=== PATIENT | female | born 1965 | race Hispanic/Latino ===

== ENCOUNTER 2019-08-06 18:44 | Inpatient (IN) | payer MEDICAID, OTHER ==
[~2019-08-06] VITALS: Ht 154.9 cm; Wt 134.6 kg
[2019-08-06 19:56] LABS: BASOPHILS % (AUTO) 0.5 % (0.0-5.0); EOSINOPHILS % (AUTO) 5.6 % (0.0-8.0); HEMATOCRIT 24.7 % (36-48); LYMPHOCYTES % (AUTO) 34.9 % (21.0-51.0); MEAN CORPUSCULAR HEMOGLOBIN 28.1 pg (27.0-33.0); MEAN CORPUSCULAR HGB CONC 30.4 g/dL (32.0-36.0); MEAN CORPUSCULAR VOLUME 92.5 fL (79-99); MONOCYTES % (AUTO) 5.2 % (3.0-13.0); NEUTROPHILS % (AUTO) 53.5 % (40.0-77.0); PLATELET COUNT (AUTO) 195 K/uL (130-400); RED BLOOD CELL COUNT(AUTO) 2.67 MIL/uL (4.00-5.50); RED CELL DISTRIBUTION WIDTH 15.5 % (11.0-15.5); WHITE BLOOD COUNT (AUTO) 7.7 K/uL (4.8-10.8)
[2019-08-06] MEDS ORDERED: FAMOTIDINE 20MG TAB 20 MG TAB ONE (19:56)
[2019-08-06] MEDS ORDERED: ONDANSETRON ODT 4 MG TAB ONE (19:57)
[2019-08-06 20:13] LABS: ALBUMIN 2.9 g/dL (3.5-5.0); BILIRUBIN,TOTAL 0.4 mg/dL (0.2-1.0); POTASSIUM 5.7 mmol/L (3.5-5.1); TOTAL PROTEIN, SERUM 7.6 g/dL (6.0-8.3)
[2019-08-06] MEDS ORDERED: SODIUM CHLORIDE 0.9% 1000ML 1,000 ML IV ONE ×2 (20:25→21:55)
[2019-08-06 20:28] LABS: APPEARANCE,URINE CLOUDY (CLEAR); BILIRUBIN,URINE NEGATIVE (NEGATIVE); COLOR,URINE YELLOW (YELLOW); GLUCOSE, URINE (UA) 100 mg/dL (NEGATIVE); KETONES,URINE NEGATIVE (NEGATIVE); LEUKOCYTE ESTERASE ,URINE SMALL (NEGATIVE); NITRATE,URINE NEGATIVE (NEGATIVE); OCCULT BLOOD,URINE TRACE-INTACT (NEGATIVE); PROTEIN,URINE >=300 mg/dL (NEGATIVE); UROBILINOGEN,URINE 0.2 mg/dL (0.2-1.0)
[2019-08-06] MEDS ORDERED: ALBUTEROL SULFATE 0.083% 2.5 MG/3 ML INH IH ONE (20:53)
[2019-08-06 21:14] LABS: BACTERIA,URINE Moderate /HPF (None Seen); SQUAMOUS EPITHELIAL CELL,UR Rare /HPF (0-2); WBC,URINE 51-100 /HPF (0-1)
[2019-08-06] MEDS ORDERED: INSULIN HUMULIN R 100 UNIT/ML 3ML IV SCH (21:30)
[2019-08-06] MEDS ORDERED: DEXTROSE 50%-WATER 25 GM/50 ML VIAL IV SCH (21:30)
[2019-08-06] MEDS ORDERED: SODIUM BICARB 8.4% 50ML SYRINGE IVP SCH (21:30)
[2019-08-06 21:31] LABS: AMYLASE 76 U/L (25-115); LIPASE 460 U/L (114-286)
[2019-08-06] MEDS ORDERED: FUROSEMIDE 10 MG/ML 4ML VIAL ONE (21:34)
[2019-08-06] MEDS ORDERED: FUROSEMIDE 10 MG/ML 2ML VIAL ONE (21:34)
[2019-08-06] MEDS ORDERED: SODIUM POLYSTYRENE SULFONATE 15 GM/60 ML ML ONE (21:34)
[2019-08-06] MEDS ORDERED: SODIUM BICARB 50MEQ 50ML VIAL ONE (21:51)
[2019-08-06] MEDS ORDERED: DEXTROSE 50%-WATER 50 ML DISP.SYRIN IV ONE (21:52)
[2019-08-06] MEDS ORDERED: INSULIN HUMULIN R 100 UNIT/ML 3ML ONE (21:52)
[2019-08-06 22:41] LABS: PHOSPHORUS 9.1 mg/dL (2.5-4.9); THYROID STIMULATING HORMONE 5.87 uIU/mL (0.36-3.74)
[2019-08-06 22:46] LABS: HEMOGLOBIN A1C 6.2 % (4.0-6.0)
[2019-08-06 23:15] LABS: POTASSIUM 5.4 mmol/L (3.5-5.1)
[2019-08-06] MEDS ORDERED: ACETAMINOPHEN 325 MG TAB PO PRN ×2 (23:15)
[2019-08-06] MEDS ORDERED: NITROGLYCERIN 0.4 MG SL TAB SL PRN (23:15)
[2019-08-06] MEDS ORDERED: DiphenhydrAMINE HCL 50 MG/ML VIAL IV PRN (23:15)
[2019-08-06] MEDS ORDERED: CEFTRIAXONE SODIUM 1 GM IV SCH (23:15)
[2019-08-06] MEDS ORDERED: ONDANSETRON HCL 4 MG/2 ML VIAL IV PRN (23:15)
--- NOTE | 2019-08-06 23:17 | NUR ---
ADMISSION. PT ADMITTED INTO ROOM 405, AWAKE, ALERT AND VERBALLY RESPONSIVE. NO C/O PAIN OR DISCOMFORT AT THIS TIME. PT AND FAMILY OREINTED TO ROOM, CALL MG WITHIN REACH, BED IN LOWEST POSITION. Addendum: 08/07/19 at 0008 by REJI DIAZ RN Amended: Links added.
[2019-08-06 23:30] VITALS: BP 156/98
[2019-08-06 23:36] LABS: % IRON SATURATION 26.8 % (22-44)
[2019-08-06] MEDS ORDERED: CALCIUM CHLORIDE 100 MG/ML 10 ML SYG IVP SCH (23:45)
[2019-08-07 00:12] VITALS: BP 155/78
[2019-08-07] MEDS ORDERED: DORZ10DR19 OS (00:15)
[2019-08-07] MEDS ORDERED: LOSA100T58 PO (00:15)
[2019-08-07] MEDS ORDERED: LEVO25TA54 PO (00:15)
[2019-08-07] MEDS ORDERED: RANI150T7 PO (00:15)
[2019-08-07] MEDS ORDERED: PRED5DRO25 OP (00:15)
[2019-08-07] MEDS ORDERED: ATOR10 PO (00:15)
[2019-08-07] MEDS ORDERED: BRIM5DRO OS (00:15)
[2019-08-07] MEDS ORDERED: CALCIUM GLUCONATE 1 GM/10 ML VIAL IV ONE (00:48)
[2019-08-07] MEDS: SODIUM CHLORIDE 0.9% 1000ML 1,000 ML IV SCH ×2 (01:04→04:17)
[2019-08-07 04:12] VITALS: BP 146/80
[2019-08-07] MEDS ORDERED: CEFTRIAXONE SODIUM 1 GM ONE (05:28)
[2019-08-07 06:22] LABS: HEMATOCRIT 21.4 % (36-48); MEAN CORPUSCULAR HEMOGLOBIN 27.4 pg (27.0-33.0); MEAN CORPUSCULAR HGB CONC 29.9 g/dL (32.0-36.0); MEAN CORPUSCULAR VOLUME 91.5 fL (79-99); PLATELET COUNT (AUTO) 164 K/uL (130-400); RED BLOOD CELL COUNT(AUTO) 2.34 MIL/uL (4.00-5.50); RED CELL DISTRIBUTION WIDTH 15.2 % (11.0-15.5); WHITE BLOOD COUNT (AUTO) 5.7 K/uL (4.8-10.8)
[2019-08-07 06:34] LABS: INR 1.01 (0.85-1.15); PARTIAL THROMBOPLASTIN TIME 29.3 SEC (26.3-35.5); PROTHROMBIN TIME 10.6 SEC (9.6-11.6)
[2019-08-07 07:07] LABS: ALBUMIN 2.7 g/dL (3.5-5.0); BILIRUBIN,TOTAL 0.3 mg/dL (0.2-1.0); MAGNESIUM 2.3 mg/dL (1.80-2.40); PHOSPHORUS 9.5 mg/dL (2.5-4.9); POTASSIUM 5.4 mmol/L (3.5-5.1); TOTAL PROTEIN, SERUM 6.7 g/dL (6.0-8.3)
[2019-08-07 07:34] LABS: CREATININE 14.7 mg/dL (0.5-1.5)
--- NOTE | 2019-08-07 07:45 | NUR ---
lab results on repeat H&H 6.3/21.0; bun 123 and creatine 14.7; all these results reported to financial engineer Robert; she stated to insert avelar cathetor to make sure pt not retaining urine and call dr freedman to inform of current labs and ask if he recommends giving prbc; I inserted a 16fr avelar cathetor---hands washed, kayode area cleansed with soap and water then betadine, aseptic technique used to insert cathetor, immediate return of 300cc clear light yellow urine; pt pa. proc. well with no c/o at this time; urine output reported to Robert; will page dr Freedman.
[2019-08-07 08:00] VITALS: BP 161/88
--- NOTE | 2019-08-07 08:20 | NUR ---
i have spoken to dr freedman on the phone and informed of new consult and current labs; he stated he would give no orders till he had a chance to see the patient; i have informed supervisor bonding Robert of this and she stated to keep an eye on pt's urine output and make sure it is increasing to conside with iv fluid intake and report to her
[2019-08-07] MEDS: PREDNISOLONE ACETATE 1% 5ML DROPS.SUSP OP SCH ×2 (09:00→21:00)
[2019-08-07] MEDS: ***HM***(Brimonidine Tartrate/Timolol (Combigan Eye Drops) 5 ML) OS SCH ×2 (09:00→21:00)
[2019-08-07] MEDS: DORZOLAMIDE HCL OS SCH ×2 (09:00→21:00)
[2019-08-07] MEDS: FAMOTIDINE/PF 20 MG/2 ML VIAL IV SCH (09:03)
[2019-08-07] MEDS: ENOXAPARIN SODIUM 30 MG/0.3 ML SQ SCH (09:04)
[2019-08-07 09:49] LABS: BAND NEUTROPHILS % (MANUAL) 1 % (0-2); EOSINOPHILS % (MANUAL) 4 % (1-6); LYMPHOCYTES % (MANUAL) 37 % (22-44); MAN.DIFF COMMENT-IMPRESSION MANUAL DIFFERENTIAL; MONOCYTES % (MANUAL) 3 % (2-9); PLATELET MORPHOLOGY COMMENT ADEQUATE; SEGMENTED NEUTROPHILS % 55 % (40-70)
[2019-08-07] MEDS ORDERED: SODIUM POLYSTYRENE SULFONATE 15 GM/60 ML ML PO SCH (10:00)
[2019-08-07 11:00] VITALS: BP 138/78
--- NOTE | 2019-08-07 13:55 | NUR ---
i have called and left a message on dr freedman's phone to inform him that pt has agreed to dialysis and see if he wants to give any further orders; pending call back
[2019-08-07] MEDS ORDERED: COMPOUND IV MISC 1 EACH IVSOLN MISC PRN (14:15)
--- NOTE | 2019-08-07 14:53 | NUR ---
no call back yet from dr freedman and pt is asking to eat; current order is to keep pt npo incase dr freedman says to do any procedures today towards starting dialysis; i have paged him
[2019-08-07] MEDS: IRON SUCROSE COMPLEX 100 MG in SODIUM CHLORIDE 0.9% 50 ML IV SCH (15:15)
[2019-08-07 16:00] VITALS: BP 154/94
--- NOTE | 2019-08-07 17:11 | NUR ---
cm note met with patient and states resides at home with daughter bethel, indep with ambulation, but needs to hold on to furniture or person to ambulate due to weakness. no dme. no provider, currently working on getting provider. dc plan is back to home. states md will starting new HD, states they prefer to go to [address] choice for HD, if in network. daughter will transport. dc plan is back home at time of dc. Addendum: 08/07/19 at 1714 by BECKY SAM CM Amended: Links added.
[2019-08-07 20:12] VITALS: BP 148/66
[2019-08-07] MEDS: CEFTRIAXONE SODIUM 1 GM IV SCH (21:46)
[2019-08-08] VITALS (11 sets, daily range): BP systolic 142–197; BP diastolic 76–92
[2019-08-08 05:34] LABS: BASOPHILS % (AUTO) 0.5 % (0.0-5.0); EOSINOPHILS % (AUTO) 4.4 % (0.0-8.0); LYMPHOCYTES % (AUTO) 30.9 % (21.0-51.0); MEAN CORPUSCULAR HEMOGLOBIN 27.6 pg (27.0-33.0); MEAN CORPUSCULAR VOLUME 92.1 fL (79-99); MONOCYTES % (AUTO) 5.8 % (3.0-13.0); NEUTROPHILS % (AUTO) 58.2 % (40.0-77.0); PLATELET COUNT (AUTO) 154 K/uL (130-400); RED BLOOD CELL COUNT(AUTO) 2.28 MIL/uL (4.00-5.50); RED CELL DISTRIBUTION WIDTH 15.4 % (11.0-15.5); WHITE BLOOD COUNT (AUTO) 5.7 K/uL (4.8-10.8)
[2019-08-08 05:45] LABS: INR 1.02 (0.85-1.15); PARTIAL THROMBOPLASTIN TIME 30.5 SEC (26.3-35.5); PROTHROMBIN TIME 10.7 SEC (9.6-11.6)
[2019-08-08 06:07] LABS: ALBUMIN 2.5 g/dL (3.5-5.0); BILIRUBIN,TOTAL 0.3 mg/dL (0.2-1.0); MAGNESIUM 2.7 mg/dL (1.80-2.40); PHOSPHORUS 9.3 mg/dL (2.5-4.9); POTASSIUM 4.6 mmol/L (3.5-5.1); TOTAL PROTEIN, SERUM 6.5 g/dL (6.0-8.3); URIC ACID 8.6 mg/dL (2.6-7.2)
[2019-08-08 06:32] LABS: CREATININE 14.1 mg/dL (0.5-1.5)
[2019-08-08] MEDS: FAMOTIDINE/PF 20 MG/2 ML VIAL IV SCH (07:46)
[2019-08-08] MEDS: PREDNISOLONE ACETATE 1% 5ML DROPS.SUSP OP SCH ×2 (07:47→19:57)
[2019-08-08] MEDS: IRON SUCROSE COMPLEX 100 MG in SODIUM CHLORIDE 0.9% 50 ML IV SCH (07:47)
[2019-08-08] MEDS: DORZOLAMIDE HCL OS SCH ×2 (09:00→19:58)
[2019-08-08] MEDS: ***HM***(Brimonidine Tartrate/Timolol (Combigan Eye Drops) 5 ML) OS SCH ×2 (09:00→19:57)
[2019-08-08] MEDS: ENOXAPARIN SODIUM 30 MG/0.3 ML SQ SCH (09:00)
[2019-08-08] MEDS: FOLIC ACID/VITAMIN B COMP W-C 1 CAP TAB PO SCH (09:00)
[2019-08-08] MEDS ORDERED: IODIXANOL 320 MG/ML 100 ML VIAL ONE (09:06)
[2019-08-08] MEDS ORDERED: LIDOCAINE HCL 1% MDV 50ML VIAL ONE (09:06)
--- NOTE | 2019-08-08 09:17 | NUR ---
TO CODE CLERK PATIENT TRANSFERRED TO CODE CLERK FOR PERMACATH PLACEMENT. SHE IS IN STABLE CONDITION. FAMILY WILL WAIT IN ROOM.
--- NOTE | 2019-08-08 10:22 | NUR ---
BACK FROM [facility] PATIENT RETURNED FROM [facility] WITH A RIGHT IJ PERMACATH. DRESSING IS DRY AND INTACT. WILL BE PLACED ON POST PROCEDURE VITAL SIGNS. WILL CONTINUE TO MONITOR.
[2019-08-08 12:58] LABS: % IRON SATURATION 83.6 % (22-44)
[2019-08-08] MEDS ORDERED: SODIUM CHLORIDE 0.9% 250 ML IV ONE (14:03)
[2019-08-08] MEDS ORDERED: 0.9% SODIUM CHLORIDE 1000 ML IV BAG IV PRN (14:30)
[2019-08-08] MEDS ORDERED: SODIUM CHLORIDE 0.9% 1000ML 1,000 ML IV PRN (14:30)
[2019-08-08] MEDS ORDERED: NITROGLYCERIN 0.4 MG SL TAB SL PRN (14:30)
[2019-08-08] MEDS ORDERED: ACETAMINOPHEN 325 MG TAB PO PRN (14:30)
[2019-08-08] MEDS ORDERED: HEPARIN SODIUM 5000UNIT/ML 1ML VIAL IJ PRN ×2 (14:30)
[2019-08-08] MEDS ORDERED: LIDOCAINE HCL-MPF 1% 2ML VIAL IJ PRN (14:30)
--- NOTE | 2019-08-08 15:01 | NUR ---
DIALYSIS PATIENT WAS DIALYZED FOR 2 HOURS TODAY REMOVING 2.2 LITERS. V/S ARE STABLE. DR. ANGUIANO CAME TO SEE PATIENT AND NEW ORDERS WERE RECEIVED AND CARRIED OUT.
[2019-08-08] MEDS ORDERED: EPOETIN ALFA 10,000 UNIT/ML VIAL SQ SCH (16:30)
[2019-08-08] MEDS ORDERED: LACTULOSE 20 GM/30 ML UDCUP ONE (19:46)
[2019-08-08] MEDS: CEFTRIAXONE SODIUM 1 GM IV SCH (19:57)
[2019-08-08] MEDS: METOPROLOL TARTRATE 25 MG TAB PO SCH (19:57)
[2019-08-08] MEDS: ATORVASTATIN CALCIUM 10 MG TABLET PO SCH (19:57)
--- NOTE | 2019-08-08 20:00 | NUR ---
NO BOWEL MOVEMENT PATIENT COMPLAINS OF NO BOWEL MOVEMENT SINCE 08-06-19 AND IS STARTING TO BECOME UNCOMFORTABLE. [employer] DRIVER NOTIFIED OF PATIENT COMPLAINT AND ORDER FOR LACTULOSE PO GIVEN AND CARRIED OUT. I DID ASK FOR ELEVATED BLOOD PRESSURE COVERAGE WELL AND WAS GIVEN AND ODER FOR HYDRALAZINE 10 MG IVP FOR SBP >160 PRN Q6 HR.
[2019-08-08] MEDS ORDERED: HYDRALAZINE HCL 20 MG/ML VIAL IV PRN (20:30)
[2019-08-08] MEDS ORDERED: LACTULOSE 20 GM/30 ML UDCUP PO PRN (20:30)
[2019-08-09] VITALS (20 sets, daily range): BP systolic 124–164; BP diastolic 72–96
[2019-08-09] MEDS: LEVOTHYROXINE 25 MCG TABLET PO SCH (04:06)
[2019-08-09 06:40] LABS: BASOPHILS % (AUTO) 0.2 % (0.0-5.0); EOSINOPHILS % (AUTO) 4.1 % (0.0-8.0); HEMATOCRIT 26.9 % (36-48); LYMPHOCYTES % (AUTO) 33.4 % (21.0-51.0); MEAN CORPUSCULAR HEMOGLOBIN 27.8 pg (27.0-33.0); MEAN CORPUSCULAR HGB CONC 31.2 g/dL (32.0-36.0); MEAN CORPUSCULAR VOLUME 89.1 fL (79-99); MONOCYTES % (AUTO) 7.3 % (3.0-13.0); NEUTROPHILS % (AUTO) 54.8 % (40.0-77.0); PLATELET COUNT (AUTO) 161 K/uL (130-400); RED BLOOD CELL COUNT(AUTO) 3.02 MIL/uL (4.00-5.50); RED CELL DISTRIBUTION WIDTH 15.5 % (11.0-15.5); WHITE BLOOD COUNT (AUTO) 6.1 K/uL (4.8-10.8)
[2019-08-09 06:58] LABS: INR 0.97 (0.85-1.15); PARTIAL THROMBOPLASTIN TIME 28.6 SEC (26.3-35.5); PROTHROMBIN TIME 10.2 SEC (9.6-11.6)
[2019-08-09 06:59] LABS: ALBUMIN 2.8 g/dL (3.5-5.0); BILIRUBIN,TOTAL 0.4 mg/dL (0.2-1.0); POTASSIUM 3.9 mmol/L (3.5-5.1); TOTAL PROTEIN, SERUM 7.3 g/dL (6.0-8.3)
[2019-08-09 07:03] LABS: CREATININE 11.4 mg/dL (0.5-1.5)
[2019-08-09] MEDS: FAMOTIDINE/PF 20 MG/2 ML VIAL IV SCH (08:04)
[2019-08-09] MEDS: METOPROLOL TARTRATE 25 MG TAB PO SCH ×2 (08:05→21:15)
[2019-08-09] MEDS: FOLIC ACID/VITAMIN B COMP W-C 1 CAP TAB PO SCH (08:07)
[2019-08-09] MEDS: ***HM***(Brimonidine Tartrate/Timolol (Combigan Eye Drops) 5 ML) OS SCH ×2 (08:07→21:00)
[2019-08-09] MEDS: PREDNISOLONE ACETATE 1% 5ML DROPS.SUSP OP SCH ×2 (08:07→21:15)
[2019-08-09] MEDS: DORZOLAMIDE HCL OS SCH ×2 (08:07→21:00)
[2019-08-09] MEDS: IRON SUCROSE COMPLEX 100 MG in SODIUM CHLORIDE 0.9% 50 ML IV SCH (08:10)
--- NOTE | 2019-08-09 10:00 | NUR ---
DISCUSSED AFTER CARE BRIEFLY WITH FAMILY THEY WANT PT TO GO TO [place], NEED MORE DIRECTION FROM . FAMILY ALSO WANTING PATIENT TO EAT NOW- ADVISED THEM TO NOT EAT PLEASE1 Addendum: 08/09/19 at 1440 by CAROLINE GOLD RN CM Amended: Links added.
--- NOTE | 2019-08-09 12:43 | NUR ---
MATHEWS MATHEWS CATHETER REMOVED PER MD ORDER. PATIENT TOLERATED WELL.
--- NOTE | 2019-08-09 14:28 | NUR ---
TO OR PATIENT HAS BEEN TRANSFERRED TO OR HOLDING VIA HOSPITAL BED IN STABLE CONDITION. SHE IS ACCOMPANIED BY DAUGHTER.
[2019-08-09] MEDS ORDERED: CEFAZOLIN SODIUM 1 GM VIAL ONE (14:44)
[2019-08-09] MEDS ORDERED: LIDOCAINE PF 2% 5ML ABBOJECT ONE (15:08)
[2019-08-09] MEDS ORDERED: PROPOFOL 10 MG/ML 20ML VIAL IV ONE (15:08)
[2019-08-09] MEDS ORDERED: ROCURONIUM 10MG/1ML SYR 10 MG/ML ML ONE (15:10)
[2019-08-09] MEDS ORDERED: ONDANSETRON HCL 4 MG/2 ML VIAL ONE (15:15)
[2019-08-09] MEDS ORDERED: MIDAZOLAM HCL 1 MG/ML 2ML VIAL ONE (15:15)
--- NOTE | 2019-08-09 16:18 | NUR ---
PKT FOR HD REFERRAL PREPARED. PT OFF FLOOR, UNABLE TO GIVE RANDALL/CONSENT. WILL FOLLOW UP IN AM
[2019-08-09] MEDS ORDERED: TRAMADOL HCL 50 MG TABLET PO PRN ×2 (16:30)
[2019-08-09] MEDS ORDERED: GLYCOPYRROLATE 1 MG/5 ML SYRINGE ONE (16:49)
[2019-08-09] MEDS ORDERED: NEOSTIGMINE 5MG/5ML SYR IV ONE (16:50)
[2019-08-09] MEDS ORDERED: METOPROLOL TARTRATE 1 MG/ML 5ML VIAL IV ONE ×2 (17:04→17:06)
--- NOTE | 2019-08-09 18:20 | NUR ---
POST SURGERY PATIENT RETURNED FROM PACU S/P LEFT UPPER ARM A-V ACCESS. SHE IS AWAKE AND ALERT AND IN STABLE CONDITION. DIALYSIS NURSE IS IN THE ROOM READY TO DIALYZE PATIENT. FAMILY IS ALSO IN ROOM. NO COMPLAINTS. DRESSING TO LEFT UPPER ARM DRY AND INTACT.
[2019-08-09] MEDS: ATORVASTATIN CALCIUM 10 MG TABLET PO SCH (21:14)
[2019-08-09] MEDS: CEFTRIAXONE SODIUM 1 GM IV SCH (21:14)
[2019-08-10] VITALS: BP 126/94
[2019-08-10 03:55] VITALS: BP 149/78
[2019-08-10 06:14] LABS: HEMATOCRIT 23.1 % (36-48); MEAN CORPUSCULAR HEMOGLOBIN 27.9 pg (27.0-33.0); MEAN CORPUSCULAR HGB CONC 31.6 g/dL (32.0-36.0); MEAN CORPUSCULAR VOLUME 88.2 fL (79-99); PLATELET COUNT (AUTO) 133 K/uL (130-400); RED BLOOD CELL COUNT(AUTO) 2.62 MIL/uL (4.00-5.50); RED CELL DISTRIBUTION WIDTH 15.1 % (11.0-15.5); WHITE BLOOD COUNT (AUTO) 6.6 K/uL (4.8-10.8)
--- NOTE | 2019-08-10 06:19 | NUR ---
DAILY WEIGHT PATIENT DOES NOT WANT TO BE WEIGHT THIS MORNING AT THIS TIME STATES SHE WILL GET UP LATER THIS MORNING AND TAKE HER WEIGHT.
[2019-08-10 06:37] LABS: ALBUMIN 2.5 g/dL (3.5-5.0); BILIRUBIN,TOTAL 0.3 mg/dL (0.2-1.0); POTASSIUM 3.6 mmol/L (3.5-5.1); TOTAL PROTEIN, SERUM 6.5 g/dL (6.0-8.3)
[2019-08-10 06:40] LABS: CREATININE 8.3 mg/dL (0.5-1.5)
[2019-08-10] MEDS: LEVOTHYROXINE 25 MCG TABLET PO SCH (06:52)
[2019-08-10 08:11] LABS: HEPATITIS Bs ANTIGEN SCREEN P Negative (Negative)
[2019-08-10 08:30] LABS: EOSINOPHILS % (MANUAL) 3 % (1-6); LYMPHOCYTES % (MANUAL) 29 % (22-44); MAN.DIFF COMMENT-IMPRESSION MANUAL DIFFERENTIAL; MONOCYTES % (MANUAL) 6 % (2-9); PLATELET MORPHOLOGY COMMENT ADEQUATE; SEGMENTED NEUTROPHILS % 62 % (40-70)
[2019-08-10] MEDS: DORZOLAMIDE HCL OS SCH ×2 (08:34→21:00)
[2019-08-10] MEDS: ***HM***(Brimonidine Tartrate/Timolol (Combigan Eye Drops) 5 ML) OS SCH ×2 (08:34→21:00)
[2019-08-10 08:37] VITALS: BP 150/75
[2019-08-10] MEDS: FOLIC ACID/VITAMIN B COMP W-C 1 CAP TAB PO SCH (09:12)
[2019-08-10] MEDS: FAMOTIDINE/PF 20 MG/2 ML VIAL IV SCH (09:13)
[2019-08-10] MEDS: IRON SUCROSE COMPLEX 100 MG in SODIUM CHLORIDE 0.9% 50 ML IV SCH (09:13)
[2019-08-10] MEDS: METOPROLOL TARTRATE 25 MG TAB PO SCH ×2 (09:13→19:53)
[2019-08-10] MEDS: PREDNISOLONE ACETATE 1% 5ML DROPS.SUSP OP SCH ×2 (09:14→19:53)
[2019-08-10 12:06] VITALS: BP 141/67
[2019-08-10 16:39] VITALS: BP 139/74
[2019-08-10] MEDS: ATORVASTATIN CALCIUM 10 MG TABLET PO SCH (19:53)
[2019-08-10] MEDS: CEFTRIAXONE SODIUM 1 GM IV SCH (19:53)
[2019-08-10 19:58] VITALS: BP 161/62
[2019-08-11] VITALS (7 sets, daily range): BP systolic 128–190; BP diastolic 58–89
[2019-08-11 05:18] LABS: PHOSPHORUS 7.8 mg/dL (2.5-4.9); POTASSIUM 3.7 mmol/L (3.5-5.1)
[2019-08-11 05:32] LABS: HEMATOCRIT 22.2 % (36-48); MEAN CORPUSCULAR HEMOGLOBIN 28.2 pg (27.0-33.0); MEAN CORPUSCULAR HGB CONC 31.5 g/dL (32.0-36.0); MEAN CORPUSCULAR VOLUME 89.5 fL (79-99); PLATELET COUNT (AUTO) 145 K/uL (130-400); RED BLOOD CELL COUNT(AUTO) 2.48 MIL/uL (4.00-5.50); RED CELL DISTRIBUTION WIDTH 15.1 % (11.0-15.5); WHITE BLOOD COUNT (AUTO) 8.1 K/uL (4.8-10.8)
[2019-08-11] MEDS: LEVOTHYROXINE 25 MCG TABLET PO SCH (06:32)
[2019-08-11] MEDS: METOPROLOL TARTRATE 25 MG TAB PO SCH ×2 (08:28→19:56)
[2019-08-11] MEDS: FOLIC ACID/VITAMIN B COMP W-C 1 CAP TAB PO SCH (08:28)
[2019-08-11] MEDS ORDERED: EPOETIN ALFA 10,000 UNIT/ML VIAL SQ SCH (08:30)
[2019-08-11] MEDS: DORZOLAMIDE HCL OS SCH ×2 (08:40→19:58)
[2019-08-11] MEDS: ***HM***(Brimonidine Tartrate/Timolol (Combigan Eye Drops) 5 ML) OS SCH ×2 (08:40→19:58)
[2019-08-11] MEDS: PREDNISOLONE ACETATE 1% 5ML DROPS.SUSP OP SCH ×2 (08:40→19:58)
--- NOTE | 2019-08-11 10:35 | NUR ---
patient was on Dialysis this AM. Addendum: 08/11/19 at 1416 by JOHN GARCÍA, PT PT Amended: Links added.
--- NOTE | 2019-08-11 13:00 | NUR ---
PATIENT HAS CHAIR- TTS [facility] OLIVIA OBRIEN 630 PM PATIENT'S LAST TREATMENT #3 SENT TO [facility] ADMISSIONS
[2019-08-11] MEDS ORDERED: Folic Acid/Vitamin B Comp W-C PO (15:40)
[2019-08-11] MEDS ORDERED: FERS325 PO (15:40)
[2019-08-11] MEDS ORDERED: PEG 3350/NA SULF,BICARB,CL/KCL 4000 ML SOLN PO SCH (17:00)
[2019-08-11 18:10] LABS: BASOPHILS % (AUTO) 0.4 % (0.0-5.0); EOSINOPHILS % (AUTO) 3.6 % (0.0-8.0); HEMATOCRIT 28.9 % (36-48); LYMPHOCYTES % (AUTO) 24.4 % (21.0-51.0); MEAN CORPUSCULAR HEMOGLOBIN 28.2 pg (27.0-33.0); MEAN CORPUSCULAR HGB CONC 31.1 g/dL (32.0-36.0); MEAN CORPUSCULAR VOLUME 90.6 fL (79-99); MONOCYTES % (AUTO) 7.3 % (3.0-13.0); PLATELET COUNT (AUTO) 154 K/uL (130-400); RED BLOOD CELL COUNT(AUTO) 3.19 MIL/uL (4.00-5.50); RED CELL DISTRIBUTION WIDTH 14.6 % (11.0-15.5); WHITE BLOOD COUNT (AUTO) 7.5 K/uL (4.8-10.8)
[2019-08-11 18:21] LABS: CREATININE 6.3 mg/dL (0.5-1.5); POTASSIUM 3.7 mmol/L (3.5-5.1)
[2019-08-11 18:24] LABS: INR 0.96 (0.85-1.15); PROTHROMBIN TIME 10.1 SEC (9.6-11.6)
[2019-08-11] MEDS: FAMOTIDINE/PF 20 MG/2 ML VIAL IV SCH (18:42)
[2019-08-11] MEDS: IRON SUCROSE COMPLEX 100 MG in SODIUM CHLORIDE 0.9% 50 ML IV SCH (18:42)
[2019-08-11] MEDS: ATORVASTATIN CALCIUM 10 MG TABLET PO SCH (19:55)
[2019-08-11] MEDS: CEFTRIAXONE SODIUM 1 GM IV SCH (19:55)
[2019-08-12] VITALS (14 sets, daily range): BP systolic 95–180; BP diastolic 49–90
[2019-08-12 06:00] LABS: BASOPHILS % (AUTO) 0.3 % (0.0-5.0); EOSINOPHILS % (AUTO) 3.3 % (0.0-8.0); HEMATOCRIT 25.4 % (36-48); LYMPHOCYTES % (AUTO) 34.3 % (21.0-51.0); MEAN CORPUSCULAR HEMOGLOBIN 27.5 pg (27.0-33.0); MEAN CORPUSCULAR HGB CONC 30.3 g/dL (32.0-36.0); MEAN CORPUSCULAR VOLUME 90.7 fL (79-99); MONOCYTES % (AUTO) 9.6 % (3.0-13.0); NEUTROPHILS % (AUTO) 52.2 % (40.0-77.0); PLATELET COUNT (AUTO) 142 K/uL (130-400); RED CELL DISTRIBUTION WIDTH 14.7 % (11.0-15.5); WHITE BLOOD COUNT (AUTO) 6.9 K/uL (4.8-10.8)
[2019-08-12 06:14] LABS: CREATININE 6.9 mg/dL (0.5-1.5); POTASSIUM 3.7 mmol/L (3.5-5.1)
[2019-08-12] MEDS: LEVOTHYROXINE 25 MCG TABLET PO SCH (06:30)
[2019-08-12] MEDS: FAMOTIDINE/PF 20 MG/2 ML VIAL IV SCH (08:27)
[2019-08-12] MEDS: PREDNISOLONE ACETATE 1% 5ML DROPS.SUSP OP SCH ×2 (08:28→20:36)
[2019-08-12] MEDS: ***HM***(Brimonidine Tartrate/Timolol (Combigan Eye Drops) 5 ML) OS SCH ×2 (08:28→20:36)
[2019-08-12] MEDS: DORZOLAMIDE HCL OS SCH ×2 (08:28→20:36)
[2019-08-12] MEDS: IRON SUCROSE COMPLEX 100 MG in SODIUM CHLORIDE 0.9% 50 ML IV SCH (08:28)
[2019-08-12] MEDS: FOLIC ACID/VITAMIN B COMP W-C 1 CAP TAB PO SCH (08:28)
[2019-08-12] MEDS: METOPROLOL TARTRATE 25 MG TAB PO SCH ×2 (08:29→20:29)
--- NOTE | 2019-08-12 09:55 | NUR ---
TO GI LAB PATIENT TRANSFERRED TO GI LAB VIA HOSPITAL BED IN STABLE CONDITION. FAMILY WILL WAIT IN ROOM.
[2019-08-12] MEDS ORDERED: PROPOFOL 10 MG/ML 20ML VIAL IV ONE (11:19)
--- NOTE | 2019-08-12 12:45 | NUR ---
POST EGD/ COLONOSCOPY PATIENT RETURNED TO ROOM IN STABLE CONDITION, FAMILY IN ROOM. NO C/O PAIN OR DISCOMFORT. WILL CONTINUE TO MONITOR.
--- NOTE | 2019-08-12 15:00 | NUR ---
MISSED WINDOW OF OPPORTUNITY TO REGISTER AT HD CLINIC NEEDED TO BE THERE ATR 230 PM TO REGISTER. CANNOT REGISTER ON WEEKEND. WILL STAY UNTIL TOMORROW AND BE DISCHARGED AFTER HD. ADVISED PRIMARY RN AND
[2019-08-12] MEDS: ATORVASTATIN CALCIUM 10 MG TABLET PO SCH (20:29)
[2019-08-12] MEDS: CEFTRIAXONE SODIUM 1 GM IV SCH (20:29)
[2019-08-13] MEDS ORDERED: METOPROLOL TARTRATE 1 MG/ML 5ML VIAL IV ONE ×2 (01:30→01:36)
[2019-08-13 01:40] VITALS: BP 136/75
[2019-08-13 01:48] LABS: HEMATOCRIT 26.9 % (36-48); MEAN CORPUSCULAR HEMOGLOBIN 27.7 pg (27.0-33.0); MEAN CORPUSCULAR HGB CONC 30.1 g/dL (32.0-36.0); MEAN CORPUSCULAR VOLUME 92.1 fL (79-99); NUCLEATED RED BLOOD CELLS 0.2 % (0.0-0.19); PLATELET COUNT (AUTO) 167 K/uL (130-400); RED BLOOD CELL COUNT(AUTO) 2.92 MIL/uL (4.00-5.50); RED CELL DISTRIBUTION WIDTH 14.8 % (11.0-15.5); WHITE BLOOD COUNT (AUTO) 8.3 K/uL (4.8-10.8)
[2019-08-13 01:55] LABS: POTASSIUM 3.8 mmol/L (3.5-5.1)
[2019-08-13 02:10] LABS: CREATININE 8.3 mg/dL (0.5-1.5)
[2019-08-13 02:41] LABS: EOSINOPHILS % (MANUAL) 2 % (1-6); LYMPHOCYTES % (MANUAL) 27 % (22-44); MAN.DIFF COMMENT-IMPRESSION MANUAL DIFFERENTIAL; MONOCYTES % (MANUAL) 3 % (2-9); REACTIVE LYMPHOCYTES 4 % (0-0); SEGMENTED NEUTROPHILS % 64 % (40-70)
[2019-08-13 04:00] VITALS: BP 130/71
[2019-08-13] MEDS: LEVOTHYROXINE 25 MCG TABLET PO SCH (06:51)
[2019-08-13 08:00] VITALS: BP 137/84
[2019-08-13] MEDS: PREDNISOLONE ACETATE 1% 5ML DROPS.SUSP OP SCH (09:00)
[2019-08-13] MEDS: DORZOLAMIDE HCL OS SCH (09:00)
[2019-08-13] MEDS: ***HM***(Brimonidine Tartrate/Timolol (Combigan Eye Drops) 5 ML) OS SCH (09:00)
[2019-08-13] MEDS ORDERED: METO25 PO (09:24)
[2019-08-13] MEDS ORDERED: PANT40TA PO (09:27)
[2019-08-13] MEDS ORDERED: CEPH500C2 PO (09:39)
[2019-08-13] MEDS ORDERED: CEPHALEXIN 500 MG CAPSULE PO SCH (09:45)
[2019-08-13 11:00] VITALS: BP 128/64
--- NOTE | 2019-08-13 11:15 | NUR ---
PATIENT HAD DIALYSIS ON AT 0815 OFF AT 1115 TOTAL FLUID REMOVED 3 LITERS T 97.1 P 82, B/P 123/63
[2019-08-13] MEDS: FOLIC ACID/VITAMIN B COMP W-C 1 CAP TAB PO SCH (12:30)
[2019-08-13] MEDS: METOPROLOL TARTRATE 25 MG TAB PO SCH (12:31)
[2019-08-13] MEDS: FAMOTIDINE/PF 20 MG/2 ML VIAL IV SCH (12:31)
[2019-08-13] MEDS: IRON SUCROSE COMPLEX 100 MG in SODIUM CHLORIDE 0.9% 50 ML IV SCH (12:35)
--- NOTE | 2019-08-13 14:07 | NUR ---
PATIENT GIVEN DISCHARGE INSTRUCTIONS AND VERBALIZED UNDERSTANDING, MONITOR UNIT NOTIFIED AND TELEMETY UNIT REMOVED. IV REMOVED WITH CATHETER INTACT. REVIEWED MEDICATIONS, FOLLOW-UP PHYSICIAN APPOINTMENT THAT SHE NEEDS TO CALL OFFICE TO SET UP THURSDAY AND HER SCHEDULED DIALYSIS T,T,S, PATIENT DENIES PAIN AT THIS TIME, NO QUESTIONS OR CONCERNS AT THIS TIME TAKING TO LOBBY VIA WHEELCHAIR AND LEFT WITH DAUGHTER FOR HOME
== END 2019-08-13 14:23 | disposition home or self-care (01) | DRG 444 ==
LOC: EDH 18:44 → EDHIP 18:45 → UNDOADMIN 21:30 → 4BH 23:10
PROVIDERS: ADMIT Hospitalist; ATTEND Hospitalist
PROC: 5A1D70Z Performance of Urinary Filtration, Intermittent, Less than 6 Hours Per Day (ICD-10-PCS; 2019-08-08)
PROC: 5A1D70Z Performance of Urinary Filtration, Intermittent, Less than 6 Hours Per Day (ICD-10-PCS; 2019-08-09)
PROC: 30233N1 Transfusion of Nonautologous Red Blood Cells into Peripheral Vein, Percutaneous Approach (ICD-10-PCS; 2019-08-09)
PROC: 0JH63XZ Insertion of Tunneled Vascular Access Device into Chest Subcutaneous Tissue and Fascia, Percutaneous Approach (ICD-10-PCS; 2019-08-09)
PROC: 05HY33Z Insertion of Infusion Device into Upper Vein, Percutaneous Approach (ICD-10-PCS; 2019-08-09)
PROC: 03180ZD Bypass Left Brachial Artery to Upper Arm Vein, Open Approach (ICD-10-PCS; principal; 2019-08-09 15:49)
PROC: 5A1D70Z Performance of Urinary Filtration, Intermittent, Less than 6 Hours Per Day (ICD-10-PCS; 2019-08-11)
PROC: 0DJD8ZZ Inspection of Lower Intestinal Tract, Via Natural or Artificial Opening Endoscopic (ICD-10-PCS; 2019-08-12)
PROC: 5A1D70Z Performance of Urinary Filtration, Intermittent, Less than 6 Hours Per Day (ICD-10-PCS; 2019-08-13)
DX: N17.9 Acute kidney failure, unspecified (principal); K85.90 Acute pancreatitis without necrosis or infection, unspecified; E87.2 Acidosis; E11.22 Type 2 diabetes mellitus with diabetic chronic kidney disease; I12.0 Hypertensive chronic kidney disease with stage 5 chronic kidney disease or end stage renal disease; E83.51 Hypocalcemia; N39.0 Urinary tract infection, site not specified; Z68.43 Body mass index [BMI] 50.0-59.9, adult; B96.20 Unspecified Escherichia coli [E. coli] as the cause of diseases classified elsewhere; N18.6 End stage renal disease; K76.0 Fatty (change of) liver, not elsewhere classified; E87.5 Hyperkalemia; K82.4 Cholesterolosis of gallbladder; E66.01 Morbid (severe) obesity due to excess calories; E03.9 Hypothyroidism, unspecified; D50.9 Iron deficiency anemia, unspecified; R19.5 Other fecal abnormalities; E78.5 Hyperlipidemia, unspecified; E78.00 Pure hypercholesterolemia, unspecified; K25.9 Gastric ulcer, unspecified as acute or chronic, without hemorrhage or perforation; D50.0 Iron deficiency anemia secondary to blood loss (chronic); Z91.19 Patient's noncompliance with other medical treatment and regimen; Z99.2 Dependence on renal dialysis; Z80.0 Family history of malignant neoplasm of digestive organs; D64.9 Anemia, unspecified
CPT/HCPCS: 36415; 36430; 36558; 43239; 45378; 71045; 74176; 76705; 76770; 77001; 80048; 80053; 80061; 81001; 82040; 82150; 82270; 82330; 82550; 82728; 82948; 83036; 83540; 83550; 83690; 83735; 84100; 84132; 84443; 84484; 84550; 85014; 85018; 85025; 85027; 85610; 85730; 86701; 86704; 86706; 86850; 86900; 86901; 86922; 87077; 87088; 87186; 87340; 87390; 87520; 90935; 93005; 93971; 94640; 97039; C1750; G0378; J0610; J0690; J0696; J0885; J1644; J1650; J1756; J1815; J1940; J2001; J2250; J2405; J2704; J2710; J3490; J7030; J7040; J7070; J7510; P9016; Q9967

== ENCOUNTER 2020-01-01 13:21 | Inpatient (IN) | payer MEDICARE ==
[~2020-01-01] VITALS: Ht 154.9 cm; Wt 127.0 kg
[~2020-01-01 13:21] MED LIST: ATOR10 PO; BRIM5DRO OS; CEPH500C2 PO; DORZ10DR19 OS; ETOMIDATE 2 MG/ML 10 ML VIAL IVP ONE; FERS325 PO; Folic Acid/Vitamin B Comp W-C PO; LEVO25TA54 PO; LOSA100T58 PO; METO25 PO; PANT40TA PO; PRED5DRO25 OP; RANI150T7 PO; ROCURONIUM BROMIDE 10MG/1ML 5ML VL IV ONE
[2020-01-01 14:14] LABS: INR 1.07 (0.85-1.15); PARTIAL THROMBOPLASTIN TIME 34.7 SEC (26.3-35.5); PROTHROMBIN TIME 11.5 SEC (9.6-11.6)
[2020-01-01 14:16] LABS: POTASSIUM 5.6 mmol/L (3.5-5.1)
[2020-01-01] MEDS ORDERED: MORPHINE SULFATE 4 MG/1ML SYG ONE ×3 (14:16→18:00)
[2020-01-01 14:17] LABS: BASOPHILS % (AUTO) 0.3 % (0.0-5.0); EOSINOPHILS % (AUTO) 0.5 % (0.0-8.0); HEMATOCRIT 29.4 % (36-48); MEAN CORPUSCULAR HEMOGLOBIN 27.3 pg (27.0-33.0); MEAN CORPUSCULAR HGB CONC 30.3 g/dL (32.0-36.0); MEAN CORPUSCULAR VOLUME 90.2 fL (79-99); MONOCYTES % (AUTO) 8.6 % (3.0-13.0); NEUTROPHILS % (AUTO) 72.8 % (40.0-77.0); NUCLEATED RED BLOOD CELLS 0.1 % (0.0-0.19); PLATELET COUNT (AUTO) 365 K/uL (130-400); RED BLOOD CELL COUNT(AUTO) 3.26 MIL/uL (4.00-5.50); RED CELL DISTRIBUTION WIDTH 18.5 % (11.0-15.5); WHITE BLOOD COUNT (AUTO) 14.5 K/uL (4.8-10.8)
[2020-01-01 14:21] LABS: CREATININE 12.6 mg/dL (0.5-1.5)
[2020-01-01 14:40] LABS: B-TYPE NATRIURETIC PEPTIDE 1120 pg/mL (0-100)
[2020-01-01 14:45] LABS: APPEARANCE,URINE CLOUDY (CLEAR); BILIRUBIN,URINE NEGATIVE (NEGATIVE); COLOR,URINE YELLOW (YELLOW); GLUCOSE, URINE (UA) NEGATIVE (NEGATIVE); KETONES,URINE NEGATIVE (NEGATIVE); LEUKOCYTE ESTERASE ,URINE TRACE (NEGATIVE); NITRATE,URINE NEGATIVE (NEGATIVE); OCCULT BLOOD,URINE NEGATIVE (NEGATIVE); PROTEIN,URINE >=300 mg/dL (NEGATIVE); UROBILINOGEN,URINE 0.2 mg/dL (0.2-1.0)
[2020-01-01 15:01] LABS: WBC,URINE 26-50 /HPF (0-1)
[2020-01-01 15:02] LABS: AMORPHOUS SEDIMENT,UR Moderate /LPF (None Seen); BACTERIA,URINE Moderate /HPF (None Seen); MUCUS,URINE Few LPF (None Seen); SQUAMOUS EPITHELIAL CELL,UR Few /HPF (0-2)
[2020-01-01] MEDS ORDERED: GLUCAGON 1MG KIT 1 MG ML IM PRN (16:30)
[2020-01-01] MEDS ORDERED: ACETAMINOPHEN 325 MG TAB PO PRN ×2 (16:30)
[2020-01-01] MEDS ORDERED: ONDANSETRON HCL 4 MG/2 ML VIAL IVP PRN (16:30)
[2020-01-01] MEDS ORDERED: DEXTROSE 50%-WATER 50 ML DISP.SYRIN IV PRN (16:30)
[2020-01-01] MEDS ORDERED: MORPHINE SULFATE 2 MG/ML 1ML SYG IVP PRN (16:30)
[2020-01-01] MEDS ORDERED: RENAL DOSE IV SCH (16:30)
[2020-01-01] MEDS ORDERED: MORPHINE SULFATE 4 MG/1ML SYG IV PRN (16:30)
[2020-01-01] MEDS: INSULIN HUMULIN R 100 UNIT/ML 3ML SQ SCH ×2 (16:30→21:00)
[2020-01-01] MEDS: FUROSEMIDE 10 MG/ML 4ML VIAL IV SCH (16:30)
[2020-01-01] MEDS ORDERED: FUROSEMIDE 10 MG/ML 4ML VIAL ONE (18:00)
[2020-01-01] MEDS: SODIUM CHLORIDE 0.9% 1000ML 1,000 ML IV SCH (18:45)
[2020-01-01 19:17] LABS: TROPONIN I 0.99 ng/mL (0.00-0.06)
[2020-01-01] MEDS ORDERED: HYDROMORPHONE 1 MG/1 ML AMP IVP SCH (20:00)
[2020-01-01] MEDS: LIDOCAINE 5% TOPICAL PATCH TP SCH (20:00)
[2020-01-01] MEDS ORDERED: PREGABALIN 75 MG CAPSULE PO SCH (20:00)
[2020-01-01] MEDS: BACLOFEN 10 MG TABLET PO SCH (21:00)
[2020-01-01] MEDS: DEXAMETHASONE SOD PHOSPHATE 4 MG/ML 1ML VIAL IVP SCH (21:00)
[2020-01-01] MEDS ORDERED: DEXAMETHASONE SOD PHOSPHATE 4 MG/ML 1ML VIAL ONE (21:06)
[2020-01-01] MEDS ORDERED: BACLOFEN 10 MG TABLET ONE (21:07)
[2020-01-01] MEDS ORDERED: PREGABALIN 75 MG CAPSULE ONE (21:08)
[2020-01-01] MEDS ORDERED: LIDOCAINE 5% TOPICAL PATCH TP ONE (21:08)
[2020-01-01] MEDS ORDERED: HYDROMORPHONE 1 MG/1 ML AMP ONE (21:09)
[2020-01-02] VITALS (7 sets, daily range): BP systolic 86–183; BP diastolic 38–99
[2020-01-02] MEDS ORDERED: MORPHINE SULFATE 4 MG/1ML SYG ONE ×3 (02:02→14:46)
[2020-01-02 03:14] LABS: TROPONIN I 0.93 ng/mL (0.00-0.06)
[2020-01-02 05:34] LABS: ALBUMIN 2.4 g/dL (3.5-5.0); BILIRUBIN,TOTAL 0.6 mg/dL (0.2-1.0); TOTAL PROTEIN, SERUM 7.4 g/dL (6.0-8.3)
[2020-01-02 05:43] LABS: BASOPHILS % (AUTO) 0.2 % (0.0-5.0); HEMATOCRIT 29.6 % (36-48); LYMPHOCYTES % (AUTO) 10.4 % (21.0-51.0); MEAN CORPUSCULAR HEMOGLOBIN 26.8 pg (27.0-33.0); MEAN CORPUSCULAR HGB CONC 29.4 g/dL (32.0-36.0); MEAN CORPUSCULAR VOLUME 91.1 fL (79-99); MONOCYTES % (AUTO) 1.9 % (3.0-13.0); PLATELET COUNT (AUTO) 383 K/uL (130-400); RED BLOOD CELL COUNT(AUTO) 3.25 MIL/uL (4.00-5.50); RED CELL DISTRIBUTION WIDTH 18.7 % (11.0-15.5)
[2020-01-02 05:46] LABS: CREATININE 13.6 mg/dL (0.5-1.5); POTASSIUM 6.7 mmol/L (3.5-5.1)
[2020-01-02 06:58] LABS: TROPONIN I 0.79 ng/mL (0.00-0.06)
[2020-01-02] MEDS: INSULIN HUMULIN R 100 UNIT/ML 3ML SQ SCH ×4 (07:30→23:04)
[2020-01-02] MEDS: ZOSYN 3.375GM+NS 50ML 50 ML IV SCH ×2 (07:45→22:21)
[2020-01-02] MEDS ORDERED: VANCOMYCIN PROTOCOL PER PHARMACY IV SCH (07:45)
[2020-01-02] MEDS ORDERED: DEXAMETHASONE SOD PHOSPHATE 10MG/ML 1ML VIAL ONE (07:55)
[2020-01-02] MEDS: PREGABALIN 75 MG CAPSULE PO SCH (09:00)
[2020-01-02] MEDS: DEXAMETHASONE SOD PHOSPHATE 4 MG/ML 1ML VIAL IVP SCH ×3 (09:00→22:20)
[2020-01-02] MEDS: LIDOCAINE 5% TOPICAL PATCH TP SCH (09:00)
[2020-01-02] MEDS: BACLOFEN 10 MG TABLET PO SCH ×3 (09:00→22:20)
[2020-01-02] MEDS ORDERED: ZOSYN 3.375GM+NS 50ML 50 ML IV ONE (09:38)
[2020-01-02] MEDS ORDERED: PREGABALIN 75 MG CAPSULE ONE (09:39)
[2020-01-02] MEDS ORDERED: VANCOMYCIN 1.25 GM in SODIUM CHLORIDE 0.9% 250 ML IV SCH (10:30)
[2020-01-02] MEDS ORDERED: COMPOUND IV REFRIGERATED 1 EACH IVSOLN MISC PRN (10:45)
--- NOTE | 2020-01-02 11:00 | NUR ---
HOME MEDICATIONS PT AWAKE, ALERT, AND ORIENTED. PT DID NOT BRING HOME MEDICATIONS AND DOES NOT RECALL NAME OR DOSES OF PRESCRIBED MEDICATION REGIMEN. PENDING HOME MEDICATIONS
[2020-01-02 12:36] LABS: TROPONIN I 0.63 ng/mL (0.00-0.06)
[2020-01-02 13:20] LABS: TROPONIN I 0.56 ng/mL (0.00-0.06)
[2020-01-02] MEDS: SODIUM CHLORIDE 0.9% 1000ML 1,000 ML IV SCH (14:45)
[2020-01-02] MEDS: FUROSEMIDE 10 MG/ML 4ML VIAL IV SCH (16:30)
[2020-01-02] MEDS ORDERED: HEPARIN SODIUM 5000UNIT/ML 1ML VIAL ONE (16:38)
[2020-01-02] MEDS ORDERED: FUROSEMIDE 10 MG/ML 4ML VIAL ONE (17:19)
[2020-01-02] MEDS ORDERED: DEXAMETHASONE SOD PHOSPHATE 4 MG/ML 1ML VIAL ONE (17:19)
[2020-01-02] MEDS ORDERED: BACLOFEN 10 MG TABLET ONE (17:20)
[2020-01-02] MEDS ORDERED: LIDOCAINE HCL 1% MDV 50ML VIAL ONE (19:15)
--- NOTE | 2020-01-02 20:02 | NUR ---
RT PERMACATH REMOVAL AT BEDSIDE IN ER RM [address] AS[address]W. PATIENT CONSENTED VERBALLY FOR PROCEDURE WITH MD PRESENT. TIMEOUT PERFORMED PRIOR TO START OF PROCEDURE. LIDOCAINE 1% ADMINISTERED TO SITE. PERMACATH REMOVED INTACT. MANUAL PRESSURE APPLIED TO SITE. NO BLEEDING OR HEMATOMA NOTED TO SITE. DRESSING APPLIED. HOB ELEVATED >45 DEGREES. CATHETER TIP SENT FOR CULTURE. REPORT GIVEN TO PRIMARY NURSE BASSEM.
[2020-01-02 20:33] LABS: TROPONIN I 0.47 ng/mL (0.00-0.06)
[2020-01-03] VITALS (7 sets, daily range): BP systolic 100–144; BP diastolic 37–58
[2020-01-03] MEDS: INSULIN HUMULIN R 100 UNIT/ML 3ML SQ SCH ×4 (07:12→22:16)
[2020-01-03 07:54] LABS: BASOPHILS % (AUTO) 0.1 % (0.0-5.0); HEMATOCRIT 28.3 % (36-48); LYMPHOCYTES % (AUTO) 8.7 % (21.0-51.0); MEAN CORPUSCULAR HEMOGLOBIN 26.9 pg (27.0-33.0); MEAN CORPUSCULAR VOLUME 89.6 fL (79-99); MONOCYTES % (AUTO) 2.2 % (3.0-13.0); NEUTROPHILS % (AUTO) 88.2 % (40.0-77.0); NUCLEATED RED BLOOD CELLS 0.2 % (0.0-0.19); PLATELET COUNT (AUTO) 364 K/uL (130-400); RED BLOOD CELL COUNT(AUTO) 3.16 MIL/uL (4.00-5.50); RED CELL DISTRIBUTION WIDTH 19.1 % (11.0-15.5); WHITE BLOOD COUNT (AUTO) 10.6 K/uL (4.8-10.8)
[2020-01-03 08:17] LABS: POTASSIUM 5.6 mmol/L (3.5-5.1)
[2020-01-03] MEDS: ZOSYN 3.375GM+NS 50ML 50 ML IV SCH ×2 (08:20→19:54)
[2020-01-03] MEDS: BACLOFEN 10 MG TABLET PO SCH ×3 (08:21→19:55)
[2020-01-03] MEDS: PREGABALIN 75 MG CAPSULE PO SCH (08:21)
[2020-01-03] MEDS: DEXAMETHASONE SOD PHOSPHATE 4 MG/ML 1ML VIAL IVP SCH ×3 (08:21→19:55)
[2020-01-03] MEDS: LIDOCAINE 5% TOPICAL PATCH TP SCH (08:22)
[2020-01-03 08:34] LABS: CREATININE 11.3 mg/dL (0.5-1.5)
[2020-01-03] MEDS: SODIUM CHLORIDE 0.9% 1000ML 1,000 ML IV SCH (09:27)
--- NOTE | 2020-01-03 12:41 | NUR ---
CAP CM spoke to pt's daughter Emilia Guido [phone] discused dc plans. Pt is independent prior to admission, lives at home w/daughter. Pt goes to [facility] @6:30pm. Denies any other equipments/services. Feels safe to go back home, daughter able to assist with transportation and needs as necessary. DC plan to home once stable. CM to cont to follow up. Addendum: 01/03/20 at 1243 by ANA JOHNSON LVN CM Amended: Links added.
[2020-01-03] MEDS ORDERED: SODIUM POLYSTYRENE SULFONATE 15 GM/60 ML ML PO SCH (13:26)
[2020-01-03] MEDS: FUROSEMIDE 10 MG/ML 4ML VIAL IV SCH (16:36)
[2020-01-03 20:56] LABS: ABG BASE EXCESS -3.1 mmol/L (-2.0-3.0); ABG HCO3 23.4 mmol/L (21.0-28.0); ABG OXYGEN SATURATION 94.3 % (95.0-99.0); ABG PCO2 47 mmHg (32-45)
--- NOTE | 2020-01-03 22:54 | NUR ---
1954: Walked in to administer medications. I went over the medications with patient noted patient very lethargic ,having difficulty keeping strength to arms and legs. Patient aware of name, place but disoriented to time. Patient with labored breathing. Breath sounds very diminished, although able to hear inspiratory and expiratory wheezing. Stayed with patient to check heart rate, bloodpressure and 02 sat. 2014: B/P 147/99, heart rate at 102, 02 sat down to 88-90 at 4 liters. 2018: Dr. Nuno paged via answering service. 2022: Dr. Nuno returned called, informed him of patient's change in status. Informed him of patient dx, and history. Orders received to do an ABG, and CT of head stat. 2026: Respiratory therapist Garry had already been paged by Aubrey PINA. At this time, also called blood bank technician. informed her that a stat CT of head was ordered due to patient changed in mental status, tech. verbalized understanding. 2034: Respiratory therapist Garry here to check on patient, informed him of patient's diagnosis, hx, and change in status. Informed him Dr. Nuno wanted stat ABGs. Patient placed on a venti mask at 50%, 02 sat at 96% 2049: ABGs done, Garry stated he would be going to run the results. Patient 02 sat had dropped to 88 for a few seconds to minute, then back up to 96%. 2053: Garry RT here with the results of ABGs. 2057: paged via answering service. 2103: Dr. Nuno returned the call, informed him of the ABG results went through the results. Informed him RT had been in to check on patient and recommends patient be placed on bipap 05/13 with rate of16, 50%. Informed him patient at this time, on venti mask at 50%, and patient de sated to 88% for a few seconds to a minute then back up to 96: asked how much pain medication patient was receiving. I made him aware, patient last received pain medication last night at 2100 MS 2 mg IVP, and also the Baclofen 5 mg po. Informed him patient had been receiving more pain medication in the ER. Did informed doctor that patient continued with, with labored breathing, lethargic, , Informed him had stopped the IVF. Doctor asked if patient had been dialyzed, informed him she was yesterday with only 1 liter removed. Doctor looked over patient's medication. Doctor stated he would be discontinuing Lyrica, and Baclofen, also ordered to put patient on BIPAP with the settings /6 with rate of 16, at 50% keep sats above 92%, continuos pulse ox. Respiratory therapist Garry made aware. He stated he would set up the Bipap, decontamination technician here for patient. 2139: Took patient to CT with tech. patient unable to stay still to have a good CT done. Back to room at this time, placed on bipap. Garry RT came to check on the patient's status and check bipap is on correctly. Pulse ox continous started reading of 96-100%. Garry RT stated he lowered the setting to 40%. Patient still lethargic, and breathing labored. Kept close eye on video of patient. 2309: Patient contineud with labored breathing, 02 sat at 98%, patient still wiggling around in bed, very lethargic. Will continue to monitor closely.
[2020-01-04] VITALS (11 sets, daily range): BP systolic 99–185; BP diastolic 41–77
[2020-01-04] MEDS ORDERED: ACETAMINOPHEN 650 MG SUPPOSITORY RC ONE (00:49)
[2020-01-04] MEDS ORDERED: ASPIRIN 300 MG SUPPOSITORY PR ONE (01:02)
[2020-01-04] MEDS: ASPIRIN 300 MG SUPPOSITORY PR SCH (01:10)
--- NOTE | 2020-01-04 03:54 | NUR ---
01/03/20 2352: I paged via answering service, patient continues with labored breathing is on Bipap 02 sat at 96-100%. Patient continues to wiggle around in bed restless, no coordination to upper extremities. 01/03/20 6808: Dr. Nuno returned the call back, informed him of the CT results, Limited evaluation due to motion artifact. Hypodensity in the lt frontal temporal and parietal lobe, might represent acute/subacute ischemic infarction or artifacts. Repeat CT head or MRI brain might further evaluate. No evidence of intracranial hemorrhage. Repeated results to Dr. Nuno at his request, then he requested to know when patient's status had change, mental. Informed him, that I had gotten report from day shift nurse that patient was pretending not to be able to grasp glass to drink, nor feed herself. Informed him but not sure when patient started. Orders received to call a code stroke and have patient do a Tele Neurology consult. 01/04/20 0000: Code stroke called, and Tele neurology consult requested. 01/04/20 0015: Gave report to receptionist secretary for the tele neuro doctor, regarding CT scan, and patient's status. She stated would notify the doctor and have him call me. 01/04/20 0020: Doctor from the Tele Neurology called ad asked regarding patient's admission, the difference from yesterday to today. Informed not sure when her status changed since the day shift nurse had stated on report patient was wanting everyone to do things for her. Like she had told him that she could not hold the drinking glass. Informed him not sure when that happened. Informed him of patient's dx, history, and last dialysis. He than proceeded to do the Tele Neuro consult with the patient. Patient required sternal stimulation to wake up. 01/04/20: 0025: Doctor went ahead and asked patient to lift her arms, which she was able, but not able to keep them elevated for long. She was able to respond to her name. He then asked her to lift up her legs, still able to but not keep them up for long. Informed him patient does not have any anticoagulants. He asked if patient able to swallow. Informed him prior to this yes, but at this time. Patient having difficulty with her breathing also. He stated he recommends her to have Aspirin CA, 325 mg, also to have the Ct Scan repeated or have an MRI, also and CTA if possible due to patient is on dialysis. Doctor stated that the procedure have to be done when the patient is calmer and better breathing. He stated he would review the Ct of the Head and jot down some recommendations on his notes. 01/04/20 0038: I spoke to the warehouse worker 2nd shift about the doctors advice. She stated she could call the senior technical trainer to come in. Informed her patient is still very restless. 01/04/20 0200: Patient asleep, breathing better, continues on the Bipap. 02 sat in the high 90's to 100%. 01/04/20 0350: Patient awake, grasping up to the air. Continuous lethargic, breathing till calm.
[2020-01-04] MEDS: INSULIN HUMULIN R 100 UNIT/ML 3ML SQ SCH ×4 (06:25→21:00)
[2020-01-04 07:53] LABS: HEMATOCRIT 29.5 % (36-48); MEAN CORPUSCULAR HEMOGLOBIN 26.4 pg (27.0-33.0); MEAN CORPUSCULAR HGB CONC 29.2 g/dL (32.0-36.0); MEAN CORPUSCULAR VOLUME 90.5 fL (79-99); NUCLEATED RED BLOOD CELLS 0.4 % (0.0-0.19); RED BLOOD CELL COUNT(AUTO) 3.26 MIL/uL (4.00-5.50); RED CELL DISTRIBUTION WIDTH 19.4 % (11.0-15.5); WHITE BLOOD COUNT (AUTO) 9.3 K/uL (4.8-10.8)
[2020-01-04 08:14] LABS: INR 1.1 (0.85-1.15); PARTIAL THROMBOPLASTIN TIME 34.4 SEC (26.3-35.5); PROTHROMBIN TIME 11.8 SEC (9.6-11.6)
[2020-01-04 08:15] LABS: POTASSIUM 5.9 mmol/L (3.5-5.1)
[2020-01-04] MEDS: DEXAMETHASONE SOD PHOSPHATE 4 MG/ML 1ML VIAL IVP SCH ×3 (08:23→21:14)
[2020-01-04] MEDS: ZOSYN 3.375GM+NS 50ML 50 ML IV SCH ×2 (08:23→21:14)
[2020-01-04] MEDS: LIDOCAINE 5% TOPICAL PATCH TP SCH (08:23)
[2020-01-04 08:28] LABS: CREATININE 12.8 mg/dL (0.5-1.5)
--- NOTE | 2020-01-04 12:30 | NUR ---
ACTIVITY PATIENT HAS BEEN EXTREMELY LETHARGIC THROUGHOUT THE MORNING. SHE IS ONLY AROUSED BY PAINFUL STIMULI. DR. GE HAS BEEN NOTIFIED AND NEW ORDERS HAVE BEEN RECEIVED. WILL CONTINUE TO MONITOR.
--- NOTE | 2020-01-04 13:40 | NUR ---
Dr. Osorio visited with patient, informed him of change in mental status and unresponsive to verbal stimuli, patient remains on Bipap. Hemodialysis completed at this time. Patient having episodes of involuntary upper body jerking. Dr. Osorio requesting patient to be transferred to ICU Yuli VICENTE, RN
--- NOTE | 2020-01-04 13:50 | NUR ---
Dr. Shay was informed of patient's change in mental status, unresponsive to verbal stimuli and needs to be shaken to wake her up. Patient remains on Bipap. Dr. Noriega gave orders to transfer patient to ICU and to consult [facility]
--- NOTE | 2020-01-04 14:00 | NUR ---
Maria Del Carmen clay preparation supervisor aware of transfer to ICU orders Yuli Vuong MSN, RN
--- NOTE | 2020-01-04 14:00 | NUR ---
UPDATE ON ACTIVITY PATIENT HAS BEEN CONFUSED RECENTLY. SHE HAS BEEN PULLING HER BiPAP OFF. SHE PULLS HER O2 MONITOR AND B/P CUFF OFF. SHE JUST COMPLETED HER DIALYSIS TREATMENT. WILL CONTINUE TO MONITOR.
--- NOTE | 2020-01-04 14:05 | NUR ---
Dr. Escaloan visited with patient and he wants a stat Ammonia level and Covid test but as per lab Covid test was already collected yesterday and pending results. Yuli Vuong MSN, RN
[2020-01-04 14:40] LABS: ABG BASE EXCESS 1.2 mmol/L (-2.0-3.0); ABG HCO3 26.5 mmol/L (21.0-28.0); ABG OXYGEN SATURATION 96.5 % (95.0-99.0); ABG PCO2 44 mmHg (32-45)
--- NOTE | 2020-01-04 17:45 | NUR ---
REPORT REPORT CALLED TO YOVANI CAMPBELL. PATIENT IS TO BE TRANSFERRED TO ROOM 208.
[2020-01-04] MEDS: METOPROLOL TARTRATE 25 MG TAB PO SCH (21:15)
[2020-01-05] VITALS (31 sets, daily range): BP systolic 111–176; BP diastolic 30–68
[2020-01-05] MEDS: ASPIRIN 300 MG SUPPOSITORY PR SCH (00:45)
[2020-01-05 04:08] LABS: MEAN CORPUSCULAR HEMOGLOBIN 26.7 pg (27.0-33.0); MEAN CORPUSCULAR HGB CONC 30.7 g/dL (32.0-36.0); NUCLEATED RED BLOOD CELLS 0.7 % (0.0-0.19); PLATELET COUNT (AUTO) 338 K/uL (130-400); RED BLOOD CELL COUNT(AUTO) 3.45 MIL/uL (4.00-5.50); RED CELL DISTRIBUTION WIDTH 19.4 % (11.0-15.5)
[2020-01-05 04:14] LABS: POTASSIUM 5.1 mmol/L (3.5-5.1)
[2020-01-05 04:39] LABS: BAND NEUTROPHILS % (MANUAL) 1 % (0-2); LYMPHOCYTES % (MANUAL) 13 % (22-44); MAN.DIFF COMMENT-IMPRESSION MANUAL DIFFERENTIAL; MONOCYTES % (MANUAL) 3 % (2-9); PLATELET MORPHOLOGY COMMENT ADEQUATE; REACTIVE LYMPHOCYTES 3 % (0-0); SEGMENTED NEUTROPHILS % 80 % (40-70)
[2020-01-05 04:51] LABS: CREATININE 10.4 mg/dL (0.5-1.5)
[2020-01-05] MEDS: INSULIN HUMULIN R 100 UNIT/ML 3ML SQ SCH ×4 (06:37→21:00)
[2020-01-05] MEDS: ASPIRIN 81MG TAB.CHEW PO SCH (08:59)
[2020-01-05] MEDS: METOPROLOL TARTRATE 25 MG TAB PO SCH ×2 (08:59→21:00)
[2020-01-05] MEDS: LOSARTAN 50 MG TABLET PO SCH (09:04)
[2020-01-05] MEDS: DEXAMETHASONE SOD PHOSPHATE 4 MG/ML 1ML VIAL IVP SCH ×3 (09:05→21:00)
[2020-01-05] MEDS: LIDOCAINE 5% TOPICAL PATCH TP SCH (09:05)
[2020-01-05] MEDS: ZOSYN 3.375GM+NS 50ML 50 ML IV SCH ×2 (09:05→19:45)
[2020-01-05 12:11] LABS: HEPATITIS A ANTIBODY IGM Negative (Negative); HEPATITIS B CORE IGM Negative (Negative); HEPATITIS Bs ANTIGEN SCREEN P Negative (Negative)
[2020-01-05] MEDS ORDERED: LIDOCAINE HCL 1% 20 ML VIAL ONE (15:36)
--- NOTE | 2020-01-05 16:40 | NUR ---
Dr. Cain at bedside. Patient medicated with rocuronium 50 mg and etomidate 20mg iv given. Patient intubated with 8.0 tube.
[2020-01-05] MEDS ORDERED: PROPOFOL 1000 MG/100 ML 100 ML IV ONE (16:41)
[2020-01-05] MEDS ORDERED: PROPOFOL 1000 MG/100 ML IV PRN (17:15)
[2020-01-05 17:27] LABS: ABG BASE EXCESS -2.6 mmol/L (-2.0-3.0); ABG HCO3 22.4 mmol/L (21.0-28.0); ABG OXYGEN SATURATION 99.2 % (95.0-99.0); ABG PCO2 40 mmHg (32-45)
[2020-01-05] MEDS ORDERED: LIDOCAINE HCL-MPF 1% 2ML VIAL IJ PRN (23:00)
[2020-01-05] MEDS ORDERED: HEPARIN SODIUM 5000UNIT/ML 1ML VIAL IJ PRN (23:00)
[2020-01-05] MEDS ORDERED: SODIUM CHLORIDE 0.9% 1000ML 1,000 ML IV PRN (23:00)
[2020-01-05] MEDS ORDERED: 0.9% SODIUM CHLORIDE 1000 ML IV BAG IV PRN (23:00)
[2020-01-06] VITALS (50 sets, daily range): BP systolic 110–185; BP diastolic 30–82
[2020-01-06 04:10] LABS: BASOPHILS % (AUTO) 0.1 % (0.0-5.0); LYMPHOCYTES % (AUTO) 12.2 % (21.0-51.0); MEAN CORPUSCULAR HEMOGLOBIN 26.5 pg (27.0-33.0); MEAN CORPUSCULAR HGB CONC 30.3 g/dL (32.0-36.0); MEAN CORPUSCULAR VOLUME 87.2 fL (79-99); NEUTROPHILS % (AUTO) 84.6 % (40.0-77.0); NUCLEATED RED BLOOD CELLS 1.2 % (0.0-0.19); PLATELET COUNT (AUTO) 239 K/uL (130-400); RED BLOOD CELL COUNT(AUTO) 3.44 MIL/uL (4.00-5.50); RED CELL DISTRIBUTION WIDTH 19.9 % (11.0-15.5); WHITE BLOOD COUNT (AUTO) 7.5 K/uL (4.8-10.8)
[2020-01-06 04:22] LABS: CREATININE 6.9 mg/dL (0.5-1.5); CRP QUANTITATIVE 79.8 mg/L (0.00-9.0); POTASSIUM 3.9 mmol/L (3.5-5.1)
[2020-01-06] MEDS: PROPOFOL 1000 MG/100 ML 100 ML IV SCH ×4 (04:27→18:05)
[2020-01-06 05:14] LABS: ERYTHROCYTE SEDIMENTATION RATE 105 MM/HR (0-30)
[2020-01-06] MEDS: INSULIN HUMULIN R 100 UNIT/ML 3ML SQ SCH ×4 (06:39→21:00)
[2020-01-06] MEDS: METOPROLOL TARTRATE 25 MG TAB PO SCH ×2 (10:34→20:27)
[2020-01-06] MEDS: LOSARTAN 50 MG TABLET PO SCH (10:35)
[2020-01-06] MEDS: LIDOCAINE 5% TOPICAL PATCH TP SCH (10:35)
[2020-01-06] MEDS: ASPIRIN 81MG TAB.CHEW PO SCH (10:36)
[2020-01-06] MEDS: ZOSYN 3.375GM+NS 50ML 50 ML IV SCH ×2 (10:39→20:27)
--- NOTE | 2020-01-06 11:04 | NUR ---
Received pt in bed in [facility]. Pt is intubated and receiving a propofol drip for sedation. Initial assessment completed and documented. Will continue to monitor pt's condition Addendum: 01/06/20 at 1108 by HUNTER Davis RN Amended: Links added.
--- NOTE | 2020-01-06 12:00 | NUR ---
No change in pt's condition at this time. Will continue to monitor pt's progress.
--- NOTE | 2020-01-06 16:00 | NUR ---
Pt remains in the prone position and stable. Will continue to monitor pt's progress.
[2020-01-06] MEDS ORDERED: ONDANSETRON 4 MG TABLET ONE (19:51)
[2020-01-07] VITALS (45 sets, daily range): BP systolic 90–156; BP diastolic 25–52
[2020-01-07] MEDS: PROPOFOL 1000 MG/100 ML 100 ML IV SCH ×4 (01:31→18:33)
[2020-01-07 03:34] LABS: ABG BASE EXCESS 0.3 mmol/L (-2.0-3.0); ABG OXYGEN SATURATION 96.7 % (95.0-99.0); ABG PCO2 36 mmHg (32-45)
[2020-01-07 06:59] LABS: HEMATOCRIT 32.9 % (36-48); MEAN CORPUSCULAR HEMOGLOBIN 27.1 pg (27.0-33.0); MEAN CORPUSCULAR HGB CONC 31.3 g/dL (32.0-36.0); MEAN CORPUSCULAR VOLUME 86.6 fL (79-99); NUCLEATED RED BLOOD CELLS 1.1 % (0.0-0.19); RED BLOOD CELL COUNT(AUTO) 3.8 MIL/uL (4.00-5.50); RED CELL DISTRIBUTION WIDTH 20.3 % (11.0-15.5)
[2020-01-07] MEDS: INSULIN HUMULIN R 100 UNIT/ML 3ML SQ SCH ×4 (07:08→21:00)
[2020-01-07] MEDS: ZOSYN 3.375GM+NS 50ML 50 ML IV SCH ×2 (07:19→19:45)
[2020-01-07 07:29] LABS: ALBUMIN 2.2 g/dL (3.5-5.0); BILIRUBIN,TOTAL 0.8 mg/dL (0.2-1.0); CRP QUANTITATIVE 51.5 mg/L (0.00-9.0); POTASSIUM 4.7 mmol/L (3.5-5.1); TOTAL PROTEIN, SERUM 6.8 g/dL (6.0-8.3)
[2020-01-07 07:45] LABS: CREATININE 9.3 mg/dL (0.5-1.5)
[2020-01-07 09:35] LABS: ABG BASE EXCESS 0.1 mmol/L (-2.0-3.0); ABG HCO3 23.3 mmol/L (21.0-28.0); ABG PCO2 34 mmHg (32-45)
[2020-01-07 09:44] LABS: ABG BASE EXCESS -0.9 mmol/L (-2.0-3.0); ABG OXYGEN SATURATION 96.9 % (95.0-99.0); ABG PCO2 36 mmHg (32-45)
[2020-01-07] MEDS: LOSARTAN 50 MG TABLET PO SCH (09:46)
[2020-01-07] MEDS: LIDOCAINE 5% TOPICAL PATCH TP SCH (09:46)
[2020-01-07] MEDS: ASPIRIN 81MG TAB.CHEW PO SCH (09:46)
[2020-01-07] MEDS: METOPROLOL TARTRATE 25 MG TAB PO SCH ×2 (09:46→21:59)
[2020-01-07] MEDS ORDERED: HEPARIN SODIUM 5000UNIT/ML 1ML VIAL SQ SCH (11:30)
[2020-01-07] MEDS: HEPARIN SODIUM 5000UNIT/ML 1ML VIAL IJ PRN (14:24)
[2020-01-07] MEDS: VANCOMYCIN 1.25 GM in SODIUM CHLORIDE 0.9% 250 ML IV SCH (17:15)
[2020-01-07] MEDS ORDERED: PHARMACY COMMUNICATION MISC SCH (18:30)
[2020-01-07] MEDS ORDERED: NOREPINEPHRINE BITARTRATE 8 MG/NS 250ML IV SCH ×2 (18:45)
[2020-01-07] MEDS: HEPARIN SODIUM 5000UNIT/ML 1ML VIAL SQ SCH (21:59)
[2020-01-08] VITALS (62 sets, daily range): BP systolic 103–132; BP diastolic 28–93
[2020-01-08] MEDS: INSULIN HUMULIN R 100 UNIT/ML 3ML SQ SCH ×4 (05:20→21:00)
[2020-01-08] MEDS: PROPOFOL 1000 MG/100 ML 100 ML IV SCH (05:23)
[2020-01-08 05:48] LABS: HEMATOCRIT 35.1 % (36-48); MEAN CORPUSCULAR HEMOGLOBIN 26.9 pg (27.0-33.0); MEAN CORPUSCULAR HGB CONC 31.1 g/dL (32.0-36.0); MEAN CORPUSCULAR VOLUME 86.7 fL (79-99); NUCLEATED RED BLOOD CELLS 0.8 % (0.0-0.19); RED BLOOD CELL COUNT(AUTO) 4.05 MIL/uL (4.00-5.50); RED CELL DISTRIBUTION WIDTH 21.2 % (11.0-15.5); WHITE BLOOD COUNT (AUTO) 10.8 K/uL (4.8-10.8)
[2020-01-08 06:57] LABS: CREATININE 7.3 mg/dL (0.5-1.5); MAGNESIUM 2.2 mg/dL (1.80-2.40); POTASSIUM 4.3 mmol/L (3.5-5.1)
[2020-01-08] MEDS: FAMOTIDINE/PF 20 MG/2 ML VIAL IV SCH (09:32)
[2020-01-08] MEDS: ASPIRIN 81MG TAB.CHEW PO SCH (09:32)
[2020-01-08] MEDS: METOPROLOL TARTRATE 25 MG TAB PO SCH ×2 (09:33→21:00)
[2020-01-08] MEDS: LOSARTAN 50 MG TABLET PO SCH (09:33)
[2020-01-08] MEDS: HEPARIN SODIUM 5000UNIT/ML 1ML VIAL SQ SCH ×3 (09:38→21:00)
[2020-01-08] MEDS: LIDOCAINE 5% TOPICAL PATCH TP SCH (09:41)
[2020-01-08] MEDS: ZOSYN 3.375GM+NS 50ML 50 ML IV SCH ×2 (09:42→16:24)
--- NOTE | 2020-01-08 10:30 | NUR ---
DR. JASSO HERE AND ASSESSED PT AND SEDATION WAS DISCONTINUED AND WILL DO WEANING PARAMETERS AND WILL EXTUBATE.
--- NOTE | 2020-01-08 10:45 | NUR ---
PT WAS EXTUBATED AND PLACED ON NASAL CANNULA AT 2 LITERS AND WILL MONITOR SATURATION. PT IS ABLE TO FOLLOW COMMANDS AND WAS ADVISED NO TALKING AND NO DRINKING OF FLUIDS.
[2020-01-09] VITALS (19 sets, daily range): BP systolic 99–141; BP diastolic 33–52
[2020-01-09 05:26] LABS: HEMATOCRIT 31.9 % (36-48); MEAN CORPUSCULAR HEMOGLOBIN 27.4 pg (27.0-33.0); MEAN CORPUSCULAR HGB CONC 31.3 g/dL (32.0-36.0); MEAN CORPUSCULAR VOLUME 87.4 fL (79-99); NUCLEATED RED BLOOD CELLS 0.5 % (0.0-0.19); RED BLOOD CELL COUNT(AUTO) 3.65 MIL/uL (4.00-5.50); RED CELL DISTRIBUTION WIDTH 22.1 % (11.0-15.5); WHITE BLOOD COUNT (AUTO) 11.1 K/uL (4.8-10.8)
[2020-01-09 05:54] LABS: CRP QUANTITATIVE 148.4 mg/L (0.00-9.0); POTASSIUM 4.6 mmol/L (3.5-5.1)
[2020-01-09 06:21] LABS: CREATININE 9.2 mg/dL (0.5-1.5)
[2020-01-09] MEDS: ZOSYN 3.375GM+NS 50ML 50 ML IV SCH ×2 (07:15→20:54)
[2020-01-09] MEDS: INSULIN HUMULIN R 100 UNIT/ML 3ML SQ SCH ×4 (07:15→20:58)
[2020-01-09] MEDS ORDERED: VANCOMYCIN 1.25 GM in SODIUM CHLORIDE 0.9% 250 ML IV SCH (09:00)
[2020-01-09] MEDS: HEPARIN SODIUM 5000UNIT/ML 1ML VIAL SQ SCH ×3 (09:11→20:57)
[2020-01-09] MEDS: LOSARTAN 50 MG TABLET PO SCH (09:18)
[2020-01-09] MEDS: ASPIRIN 81MG TAB.CHEW PO SCH (09:19)
[2020-01-09] MEDS: METOPROLOL TARTRATE 25 MG TAB PO SCH ×2 (09:19→20:55)
[2020-01-09] MEDS: FAMOTIDINE/PF 20 MG/2 ML VIAL IV SCH (09:20)
[2020-01-09] MEDS: LIDOCAINE 5% TOPICAL PATCH TP SCH (09:21)
--- NOTE | 2020-01-09 09:30 | NUR ---
DYSPHAGIA EVAL COMPLETED. +S/S OF ASPIRATION WITH THIN LIQUIDS VIA STRAW. RECOMMEND MECHANICAL SOFT, THIN LIQUIDS; PILLS WHOLE WITH LIQUIDS; NO STRAW. CAR BODY DESIGNER COORDINATED CARE WITH NURSE OLIVIA CHAND. RESULTS AND RECOMMENDATIONS COMMUNICATED. Addendum: 01/09/20 at 1212 by FELA HUFFMAN, [facility] Amended: Links added.
--- NOTE | 2020-01-09 10:00 | NUR ---
SPEECH THERAPY WAS CONSULTED FOR SWALLOW STUDY AND PATIENT WAS ABLE TO SWALLOW WITHOUT PROBLEMS AND DIET ORDERED.
--- NOTE | 2020-01-09 10:30 | NUR ---
PT REPORT WAS GIVEN TO JASS PALENCIA RN AND PT TO BE TRANSFERRED TO ROOM 232.
--- NOTE | 2020-01-09 11:15 | NUR ---
RECEIVED TRANSFER TO ROOM 232 VIA BED ACCOMPANIED BY Julianna WISE RN. PT. AAOX3, RESP.'S EVEN AND UNLABORED. DENIES ANY C/O SOB, DENIES ANY CURRENT PAIN. O2 AT 2L/NC. RIGHT NECK AREA WITH HD CATHETER IN PLACE, DRSG D/I. LEFT ARM WITH HD ACCESS, (+) BRUIT AND THRILL. REPOSITIONED FOR COMFORT. CALL LIGHT WITHIN REACH, VERBALIZED ABILITY TO USE. BED LOW, SIDE RAILS UP X3. ROOM BLINDS OPEN.
--- NOTE | 2020-01-09 11:27 | NUR ---
DC PLAN ORDER RECEIVED FOR [facility]. CALLED PATIENT ROOM NO ANSWER. CALLED DAUGHTER ON FACE SHEET PHONE BUSY. YOVANA WILL CONTINUE TO FOLLOW. Addendum: 01/09/20 at 1128 by PATRICIA SALINAS RN CM Amended: Links added.
[2020-01-09] MEDS: ACETAMINOPHEN 325 MG TAB PO PRN (12:38)
--- NOTE | 2020-01-09 13:24 | NUR ---
DR. ANGUIANO IN ROOM SPEAKING WITH PT.
[2020-01-09] MEDS ORDERED: HYDROMORPHONE HCL 0.5 MG/0.5 ML ML ONE (14:06)
[2020-01-09] MEDS ORDERED: HYDROMORPHONE HCL 0.5 MG/0.5 ML ML IVP PRN (14:15)
--- NOTE | 2020-01-09 15:38 | NUR ---
RESTING IN BED IN LEFT SIDE-LYING POSITION WITH EYES CLOSED, RESP.'S EVEN AND UNLABORED. HOB AT 20 DEGREES. RR-16/MIN. CALL LIGHT WITHIN REACH. ROOM BLINDS OPEN.
--- NOTE | 2020-01-09 17:05 | NUR ---
RECEIVED CALL FROM PT.'S DAUGHTER, AZAEL, UPDATED ON STATUS INCLUDING PAIN MEDICATIONS ADMINISTERED AND QUESTIONS ANSWERED; DAUGHTER VERBALIZED UNDERSTANDING.
[2020-01-10 03:19] VITALS: BP 131/50
[2020-01-10] MEDS: HEPARIN SODIUM 5000UNIT/ML 1ML VIAL SQ SCH ×3 (05:00→22:11)
[2020-01-10] MEDS: INSULIN HUMULIN R 100 UNIT/ML 3ML SQ SCH ×4 (05:01→21:00)
[2020-01-10 05:17] LABS: HEMATOCRIT 30.8 % (36-48); MEAN CORPUSCULAR HEMOGLOBIN 27.8 pg (27.0-33.0); MEAN CORPUSCULAR HGB CONC 31.2 g/dL (32.0-36.0); MEAN CORPUSCULAR VOLUME 89.3 fL (79-99); RED BLOOD CELL COUNT(AUTO) 3.45 MIL/uL (4.00-5.50); WHITE BLOOD COUNT (AUTO) 11.3 K/uL (4.8-10.8)
[2020-01-10 06:18] LABS: ALBUMIN 1.8 g/dL (3.5-5.0); BILIRUBIN,TOTAL 0.9 mg/dL (0.2-1.0); POTASSIUM 4.5 mmol/L (3.5-5.1); TOTAL PROTEIN, SERUM 5.9 g/dL (6.0-8.3)
[2020-01-10 06:31] LABS: CREATININE 10.6 mg/dL (0.5-1.5)
[2020-01-10 06:41] LABS: CRP QUANTITATIVE 186.9 mg/L (0.00-9.0); PHOSPHORUS 14.8 mg/dL (2.5-4.9)
[2020-01-10] MEDS: FAMOTIDINE/PF 20 MG/2 ML VIAL IV SCH (07:31)
[2020-01-10] MEDS: ASPIRIN 81MG TAB.CHEW PO SCH (07:32)
[2020-01-10] MEDS: ZOSYN 3.375GM+NS 50ML 50 ML IV SCH ×2 (07:33→21:58)
[2020-01-10 07:39] VITALS: BP 108/34
[2020-01-10] MEDS: METOPROLOL TARTRATE 25 MG TAB PO SCH ×2 (09:00→21:58)
[2020-01-10] MEDS: LOSARTAN 50 MG TABLET PO SCH (09:00)
[2020-01-10] MEDS: LIDOCAINE 5% TOPICAL PATCH TP SCH (09:41)
--- NOTE | 2020-01-10 11:28 | NUR ---
DC PLAN CALLED PATIENT ROOM. CALLED DAUGHTER DRAGAN PHONE BUSY. SPOKE TO JASS PINA SAID PATIENT SOMETIMES A LITTLE CONFUSED AT TIMES. GAVE ME OTHER NUMBER FOR DAUGHTER BRIAN [phone]. TRIED TO CALL PHONE SAID CAN NOT LEAVE MESSAGE NOT SET UP. CM WILL CONTINUE TO TRY. PER NURSE DR. Busch MENTIONED WILL NEED 8 WEEKS OF ABX. Addendum: 01/10/20 at 1132 by PATRICIA SALINAS RN CM Amended: Links added.
[2020-01-10 12:25] VITALS: BP 120/40
[2020-01-10] MEDS: HEPARIN SODIUM 5000UNIT/ML 1ML VIAL IJ PRN (14:18)
--- NOTE | 2020-01-10 15:06 | NUR ---
patient is on Dialysis this PM.Notified YOVANI Diamond that will attempt to initiate skilled PT Evaluation tomorrow 01/11/2020. Addendum: 01/10/20 at 1507 by JOHN GARCÍA, PT PT Amended: Links added.
--- NOTE | 2020-01-10 15:08 | NUR ---
DR. Lau REQUESTING UP RE D/C PLAN, ADVISED NO RANDALL FOR [facility]. ATTEMPTED AGAIN TO CALL DAUGHTER AZAEL AND LEFT EXT FOR CALL BACK. UNABLE TO LEAVE VOICE MAIL
[2020-01-10 15:50] VITALS: BP 145/36
--- NOTE | 2020-01-10 16:30 | NUR ---
HD COMPLETED. TOLERATED W/O C/O. CALL LIGHT WITHIN REACH.
--- NOTE | 2020-01-10 17:01 | NUR ---
TO CT SCAN VIA BED ACCOMPANIED BY BOOSTER PUMP OILER. PT. WITH N/C AT 3L/NC.
[2020-01-10] MEDS: VANCOMYCIN 1.25 GM in SODIUM CHLORIDE 0.9% 250 ML IV SCH (17:26)
--- NOTE | 2020-01-10 17:30 | NUR ---
RETURNED FROM CT SCAN VIA BED. DENIES ANY C/O AT THIS TIME. ASSISTED TO SET UP FOR DINNER. CALL LIGHT WITHIN REACH. BLINDS OPEN.
[2020-01-10 20:00] VITALS: BP 124/46
[2020-01-11] VITALS: BP 152/40
[2020-01-11] MEDS: ACETAMINOPHEN 325 MG TAB PO PRN (01:21)
[2020-01-11 04:00] VITALS: BP 141/46
[2020-01-11] MEDS: INSULIN HUMULIN R 100 UNIT/ML 3ML SQ SCH ×4 (05:39→20:44)
[2020-01-11] MEDS: HEPARIN SODIUM 5000UNIT/ML 1ML VIAL SQ SCH ×3 (05:39→20:42)
[2020-01-11 06:10] LABS: HEMATOCRIT 29.1 % (36-48); MEAN CORPUSCULAR HEMOGLOBIN 27.8 pg (27.0-33.0); MEAN CORPUSCULAR HGB CONC 31.3 g/dL (32.0-36.0); RED BLOOD CELL COUNT(AUTO) 3.27 MIL/uL (4.00-5.50); RED CELL DISTRIBUTION WIDTH 22.2 % (11.0-15.5); WHITE BLOOD COUNT (AUTO) 10.7 K/uL (4.8-10.8)
[2020-01-11 06:26] LABS: ALBUMIN 1.8 g/dL (3.5-5.0); BILIRUBIN,TOTAL 0.9 mg/dL (0.2-1.0); CREATININE 7.8 mg/dL (0.5-1.5); PHOSPHORUS 9.1 mg/dL (2.5-4.9); POTASSIUM 4.2 mmol/L (3.5-5.1)
[2020-01-11 08:00] VITALS: BP 110/39
[2020-01-11] MEDS: ZOSYN 3.375GM+NS 50ML 50 ML IV SCH ×2 (08:59→20:43)
[2020-01-11] MEDS: LIDOCAINE 5% TOPICAL PATCH TP SCH (08:59)
[2020-01-11] MEDS: METOPROLOL TARTRATE 25 MG TAB PO SCH ×2 (09:00→20:44)
[2020-01-11] MEDS: LOSARTAN 50 MG TABLET PO SCH (09:00)
[2020-01-11] MEDS: ASPIRIN 81MG TAB.CHEW PO SCH (09:00)
[2020-01-11] MEDS: FAMOTIDINE/PF 20 MG/2 ML VIAL IV SCH (09:00)
--- NOTE | 2020-01-11 10:23 | NUR ---
RDSCREEN - LOS X 10 Pt positive COVID, s/p Dialysis x1 (possible temporary per EMR). Dialysis diet order in place. Pt receiving Nepro QD. Unknown LBM as per Pt. BMI 52.9. Cr 7.8, Alb 1.8, GFR 6, BUN 67, P 9.1, Alk 43. Recommend stool softener/laxative as needed RD to follow up for Dialysis nutrition education as needed. RD to continue to monitor. Please notify RD as additional nutrition concerns arise.
[2020-01-11 11:30] VITALS: BP 123/37
--- NOTE | 2020-01-11 13:55 | NUR ---
FOLLOW UP COMPLETED. Pt CURRENTLY ON MECHANICAL SOFT, THIN LIQUIDS. Pt ON 02 VIA NASAL CANNULA. Pt TOLERATING DIET WITH NO OVERT S/S OF ASPIRATION. SKILLED SPEECH THERAPY IS NOT WARRANTED AT THIS TIME. MED AIDE COORDINATED WITH NURSE REGAN. Addendum: 01/11/20 at 1411 by FELA HUFFMAN, SPT ST Amended: Links added.
--- NOTE | 2020-01-11 13:59 | NUR ---
per Lobo PINA, patient is schedule to be DC to [facility] later today.No skilled PT maryuri perform. Addendum: 01/11/20 at 1400 by JOHN GARCÍA PT PT Amended: Links added.
--- NOTE | 2020-01-11 15:30 | NUR ---
[facility]FA HL'S REMOVED, CATHETERS INTACT.
--- NOTE | 2020-01-11 15:39 | NUR ---
ATTEMPTED TO CALL REPORT AFTER HAVING FAXED MEDICATION RECONCILIATION REPORT AT 1515. [facility]. MEDICATION REPORT TO BE FAXED AGAIN AND REPORT TO BE RE-ATTEMPTED.
--- NOTE | 2020-01-11 16:09 | NUR ---
ATTEMPTED TO CALL REPORT FOR TRANSFER TO [facility]. SPOKE WITH SOL WHO ASKED FOR A CALL BACK NUMBER DUE TO [facility] GETTING REPORT ON 6 DIFFERENT PT.'S. EITHER ANIYAH OR HOPE TO CALL BACK FOR REPORT, PER SOL.
--- NOTE | 2020-01-11 16:20 | NUR ---
DISCHARGE INSTRUCTIONS GIVEN, VERBALIZED UNDERSTANDING.
[2020-01-11 17:22] VITALS: BP 111/43
--- NOTE | 2020-01-11 18:03 | NUR ---
ASSISTED TO SIT UP ON SIDE OF BED REQUESTED BY PT. GOOD TRUNK SUPPORT, PT. ABLE TO MAINTAIN EQUILIBRIUM. CALL LIGHT WITHIN REACH, VERBALIZED ABILITY TO USE. BED LOW, SIDE RAILS UP X3. ROOM BLINDS OPEN.
--- NOTE | 2020-01-11 18:20 | NUR ---
STILL AWAITING CALL FROM [facility] FOR REPORT.
--- NOTE | 2020-01-11 19:35 | NUR ---
REPORT CALLED TO PATRICIA EDMONDSON AT [facility] AT 1920. TRANSPORT NOTIFIED. PT NOTIFIED AND DAUGHTER NOTIFIED. PT AWAITING TRANSPORT.
[2020-01-11 19:57] VITALS: BP 109/38
--- NOTE | 2020-01-11 21:45 | NUR ---
PT DISCHARGED VIA STRETCHER WITH EMS ESCORT TO [facility] WITH ALL BELONGINGS. Addendum: 01/11/20 at 2202 by CARLITA PIMENTEL RN RN JAYLAN ADDISON NOTIFIED OF PT DISCHARGE PER PT REQUEST.
== END 2020-01-11 21:45 | DRG 314 ==
LOC: EDH 13:21 → OBSVTOIN 16:01 → EDHIP 16:01 → 3BH 01-02 20:41 → 2BH 01-04 18:50 → 2AH 01-09 11:11
PROVIDERS: ADMIT Family Medicine; ATTEND Family Medicine
PROC: 5A1D70Z Performance of Urinary Filtration, Intermittent, Less than 6 Hours Per Day (ICD-10-PCS; 2020-01-02)
PROC: 5A09357 Assistance with Respiratory Ventilation, Less than 24 Consecutive Hours, Continuous Positive Airway Pressure (ICD-10-PCS; 2020-01-03)
PROC: 5A1D70Z Performance of Urinary Filtration, Intermittent, Less than 6 Hours Per Day (ICD-10-PCS; 2020-01-04)
PROC: 5A09357 Assistance with Respiratory Ventilation, Less than 24 Consecutive Hours, Continuous Positive Airway Pressure (ICD-10-PCS; 2020-01-04)
PROC: 5A1945Z Respiratory Ventilation, 24-96 Consecutive Hours (ICD-10-PCS; principal; 2020-01-05)
PROC: 5A1D70Z Performance of Urinary Filtration, Intermittent, Less than 6 Hours Per Day (ICD-10-PCS; 2020-01-05)
PROC: 0BH17EZ Insertion of Endotracheal Airway into Trachea, Via Natural or Artificial Opening (ICD-10-PCS; 2020-01-05)
PROC: 02HV33Z Insertion of Infusion Device into Superior Vena Cava, Percutaneous Approach (ICD-10-PCS; 2020-01-05)
PROC: B548ZZA Ultrasonography of Superior Vena Cava, Guidance (ICD-10-PCS; 2020-01-05)
PROC: 02PYX3Z Removal of Infusion Device from Great Vessel, External Approach (ICD-10-PCS; 2020-01-05)
PROC: 5A09357 Assistance with Respiratory Ventilation, Less than 24 Consecutive Hours, Continuous Positive Airway Pressure (ICD-10-PCS; 2020-01-05)
PROC: 0JPT3XZ Removal of Tunneled Vascular Access Device from Trunk Subcutaneous Tissue and Fascia, Percutaneous Approach (ICD-10-PCS; 2020-01-05)
PROC: 5A1D70Z Performance of Urinary Filtration, Intermittent, Less than 6 Hours Per Day (ICD-10-PCS; 2020-01-07)
PROC: 5A1D70Z Performance of Urinary Filtration, Intermittent, Less than 6 Hours Per Day (ICD-10-PCS; 2020-01-10)
DX: T82.7XXA Infection and inflammatory reaction due to other cardiac and vascular devices, implants and grafts, initial encounter (principal); U07.1 COVID-19; A41.81 Sepsis due to Enterococcus; N18.6 End stage renal disease; J12.89 Other viral pneumonia; J96.01 Acute respiratory failure with hypoxia; G92 Toxic encephalopathy; R65.21 Severe sepsis with septic shock; N39.0 Urinary tract infection, site not specified; Z68.43 Body mass index [BMI] 50.0-59.9, adult; I12.0 Hypertensive chronic kidney disease with stage 5 chronic kidney disease or end stage renal disease; I38 Endocarditis, valve unspecified; J98.11 Atelectasis; M46.26 Osteomyelitis of vertebra, lumbar region; E11.22 Type 2 diabetes mellitus with diabetic chronic kidney disease; R00.0 Tachycardia, unspecified; E11.69 Type 2 diabetes mellitus with other specified complication; M46.46 Discitis, unspecified, lumbar region; Z99.2 Dependence on renal dialysis; Z91.15 Patient's noncompliance with renal dialysis; E66.01 Morbid (severe) obesity due to excess calories; E03.9 Hypothyroidism, unspecified; E78.5 Hyperlipidemia, unspecified; E87.5 Hyperkalemia; E87.70 Fluid overload, unspecified; I35.1 Nonrheumatic aortic (valve) insufficiency; M48.061 Spinal stenosis, lumbar region without neurogenic claudication; Y83.8 Other surgical procedures as the cause of abnormal reaction of the patient, or of later complication, without mention of misadventure at the time of the procedure; Z74.01 Bed confinement status; Z79.899 Other long term (current) drug therapy; Z80.0 Family history of malignant neoplasm of digestive organs; Z83.3 Family history of diabetes mellitus; Z91.19 Patient's noncompliance with other medical treatment and regimen
CPT/HCPCS: 31500; 36415; 36589; 36600; 70450; 71045; 72131; 72148; 80048; 80053; 80074; 81001; 82140; 82435; 82550; 82728; 82803; 82947; 82948; 83605; 83690; 83735; 83874; 83880; 84100; 84132; 84145; 84295; 84484; 85018; 85025; 85027; 85378; 85610; 85651; 85730; 86140; 87040; 87070; 87077; 87088; 87186; 87426; 90935; 92610; 93005; 93306; 94002; 94003; 94660; G0378; J1100; J1170; J1644; J1815; J1940; J2270; J2543; J2704; J3370; J3490; J7050; Q0162; U0003